=== PATIENT | female | born 1955 | race Caucasian/White ===

== ENCOUNTER 2017-06-28 19:10 | Emergency (ER) | payer SELFPAY ==
[~2017-06-28] VITALS: Ht 162.6 cm; Wt 77.1 kg
[~2017-06-28 19:10] MED LIST: ALBU2.5V4 IH; AMIT50TA3 PO; CETI10TA20 PO; DAPA5TAB PO; DICL100G18 TP; FLUT1DIS27 IH; HYDR-34 PO; HYDR-757 PO; LISI-556 PO; METF1000 PO; MONT10TA21 PO; NAPR-1071 PO; NAPR500T8 PO; OMEP20CA12 PO; PRAV20TA3 PO; PROM25TA14 PO; RT-ALBUINH IH; SMTR50T PO; SODI30SP2 NS; TIOT18CA2 IH; TRAM50TA2 PO
--- OUTSIDE RECORDS SUMMARY | 2017-06-28 19:16 | XMS REPORT ---
Author Author DOV JACOBS [facility] eClinicalWorks Address Unknown Phone Unavailable Care Team Providers Care Institutional Nutrition Consultant Name Role Phone DOV JACOBS CP Unavailable Allergies, Adverse Reactions, Alerts Substance Reaction Event Type Codeine nausea and vomiting Drug Allergy Problems Problem Type Condition Code Onset Dates Condition Status Assessment Acute flank pain R10.9 Active Problem Type II diabetes mellitus E11.9 Active Problem Asthma J45.909 Active Problem Encounter for dental examination and cleaning without abnormal findings Z01.20 Active Problem Onychomycosis B35.1 Active Assessment Dysuria R30.0 Active Problem Benign essential hypertension I10 Active Problem Hyperlipemia E78.5 Active Medications Medication Code System Code Instructions Start Date End Date Status Dosage Singulair [facility] [id number] 10 MG Orally Once a day 1 tablet ProAir HFA [facility] [address]-38 90 mcg/actuation Inhalation every 4 hrs August 01, 2014 2 puffs as needed Cyclobenzaprine HCl [facility] [address]-49 10 mg Orally Three times a day as needed for pain Jan 07, 2016 1/2 - 1 tablet cetirizine [facility] [address]-37 10 mg October 17, 2013 1 tablet by Oral route 1 daily Flector [facility] [address]-75 1.3 % Transdermal every 12 hours as needed Feb 18, 2016 1 patch to skin Farxiga [facility] [address]-01 5 MG Orally Once a day in the morni take 1 tablet Advair Diskus [facility] [address]-11 500-50 mcg/dose August 25, 2012 inhale 1 puff by Inhalation route in the morning and evening 2 times per day approximately 12 hours apart rinse mouth and spit after use MetFORMIN HCl ER (MOD) [facility] [address]-96 1000 MG Orally 2 times a day ( follow up in FEBRUARY) 1 tablet with breakfast and evening meal Lisinopril [facility] [address]-50 5 MG Orally Once a day 1 tablet by Oral route 1 time per day protect kidneys amitriptyline [facility] [address]-91 50 mg August 23, 2014 take 1 tablet (50 mg) by oral route once daily at bedtime Omeprazole [facility] [address]-78 20 MG Orally Once a day 1 capsule Albuterol Sulfate [facility] [address]-71 2.5 mg /3 mL (0.083 %) October 17, 2013 1 Each by Inhalation route every 4 hours for cough and wheeze PRN for wheezing or cough Pravastatin Sodium [facility] [address]-81 20 MG Orally Once a day Jun 26, 2015 1 tablet Naproxen [facility] [address]-73 500 MG Orally every 12 hrs Jun 05, 2015 1 tablet as needed Spiriva HandiHaler [facility] [address]-49 18 MCG Inhalation Once a day [address] capsule [address]mitrex [facility] [address]-75 50 mg Dec 31, 2013 take 1 tablet (50 mg ) by oral route once with fluids as early as possible after the onset of a migraine attack;may repeat after 2 hours if headache returns, not to exceed 200mg in 24hrs Procedures Procedure Coding System Code Date URINE CULTURE/COLONY COUNT CPT-4 80886 Feb 18, 2016 Office Visit, Est Pt., Level 3 CPT-4 24983 Feb 18, 2016 URINALYSIS, AUTO, W/O SCOPE CPT-4 05488 Feb 18, 2016 Vital Signs Date/Time: Feb 18, 2016 Cardiac Monitoring Heart Rate 76 bpm Weight 177.5 lbs Height 64 in BMI 30.46 Index Blood Pressure Diastolic 84 mmHg Blood Pressure Systolic 130 mmHg Results Name Result Date Reference Range Unit Abnormality Flag UA LONG DIP (IN HOUSE) ----MARCO Trace [id number] ----NIT Negative [id number] ----Exp date [id number] ----Lot # [id number] ----SG >=1.030 20160218 ----KET Trace [id number] ----FATUMA Negative [id number] ----GLU Trace [id number] ----Odor none [id number] ----pH 5.5 [id number] ----BLO Trace-lysed [id number] ----URO 0.2 [id number] ----Protein Negative [id number] ----Lot # [id number] ----Exp date [id number] ----Clarity clear [id number] ----Color yellow [id number] CULTURE, URINE ----Result 1 No growth [id number] ----Urine Culture, Routine Final report [id number] Summary Purpose eClinicalWorks Submission
--- OUTSIDE RECORDS SUMMARY | 2017-06-28 19:16 | XMS REPORT ---
Author Author JULIO MAHONEY [facility] Address [address] [place] [address] Care Team Providers Care Efficiency Miner Blasting Name Role Phone JULIO MAHONEY Unavailable PROBLEMS Type Condition ICD9-CM Code [id number] Code Onset Dates Condition Status SNOMED Code Problem Type II diabetes mellitus E11.9 Active 04467757 Problem Encounter for dental examination and cleaning without abnormal findings Z01.20 Active 370696520 Problem Asthma J45.909 Active 297076261 Problem Onychomycosis B35.1 Active 862851938 Problem Hyperlipemia E78.5 Active 57808156 Problem Benign essential hypertension I10 Active 1300119 Problem Chronic tension-type headache, not intractable G44.229 Active 746653688 Problem 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 280693623 Problem Depressed mood F32.9 Active 878070145 Problem Dysthymia F34.1 Active 77678209 Problem Nocturnal hypoxemia G47.34 Active 464331098 Problem COPD exacerbation J44.1 Active 736603794 ALLERGIES No Information SOCIAL HISTORY Never Assessed PLAN OF CARE VITAL SIGNS MEDICATIONS Unknown Medications RESULTS No Results PROCEDURES No Known procedures IMMUNIZATIONS No Known Immunizations MEDICAL (GENERAL) HISTORY Type Description Date Medical History Asthma- PFT 2012- "mild restrictive defect" Medical History Type 2 diabetes mellitus Medical History Headache syndrome Medical History Eye exam 03/2015- Dry eye syndrome, Exophria, nuclear sclerotic cataract- [facility] Medical History Left medial meniscus tear-seeing [facility] Surgical History hysterectomy, total with bilateral salpingo-oophorectomy (BSO )- had cysts on her ovaries- no hx of cancer Surgical History left arm fracture 2015 Surgical History left knee scope 10/2015 Surgical History left elbow 2016 Hospitalization History surgeries Hospitalization History Child
--- OUTSIDE RECORDS SUMMARY | 2017-06-28 19:16 | XMS REPORT ---
Author Author JULIO MAHONEY [facility] eClinicalWorks Address Unknown Phone Unavailable Care Team Providers Care Fur Repairer Name Role Phone JULIO MAHONEY CP Unavailable Allergies No Known Allergies Problems Problem Type Condition Code Onset Dates Condition Status Problem Unspecified sleep disturbance 780.50 Active Problem Headache 784.0 Active Problem Unspecified chronic bronchitis 491.9 Active Problem Unspecified follow-up examination V67.9 Active Problem Asthma 493.90 Active Problem Allergic rhinitis 477.9 Active Problem Type II diabetes mellitus 250.00 Active Problem Other diseases of lung, not elsewhere classified 518.89 Active Problem Obesity, unspecified 278.00 Active Problem Dermatophytosis of nail 110.1 Active Problem 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 Active Medications No Known Medications Results No Known Results Summary Purpose eClinicalWorks Submission
--- OUTSIDE RECORDS SUMMARY | 2017-06-28 19:17 | XMS REPORT ---
Author Author JAKI NEGRETE Organization [facility] Address [address] [place] [address] Care Team Providers Care Army Senior Officer Name Role Phone JAKI NEGRETE Unavailable PROBLEMS Type Condition ICD9-CM Code [id number] Code Onset Dates Condition Status SNOMED Code Problem Benign essential hypertension I10 Active 3979251 Problem Asthma J45.909 Active 239284135 Problem Type II diabetes mellitus E11.9 Active 73288728 Problem Onychomycosis B35.1 Active 717237622 Problem Hyperlipemia E78.5 Active 25864581 Problem Chronic tension-type headache, not intractable G44.229 Active 312508911 Problem 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 595409718 Problem Dysthymia F34.1 Active 56484047 Problem Encounter for dental examination and cleaning without abnormal findings Z01.20 Active 814966451 Problem Nocturnal hypoxemia G47.34 Active 498774893 Problem Depressed mood F32.9 Active 642828112 ALLERGIES No Information SOCIAL HISTORY Never Assessed PLAN OF CARE VITAL SIGNS MEDICATIONS Unknown Medications RESULTS No Results PROCEDURES No Known procedures IMMUNIZATIONS No Known Immunizations MEDICAL (GENERAL) HISTORY Type Description Date Medical History Asthma- PFT 2012- "mild restrictive defect" Medical History Type 2 diabetes mellitus Medical History Headache syndrome Medical History Eye exam 03/2015- Dry eye syndrome, [facility], [facility] Medical [facility] Left medial meniscus tear-seeing [facility] Surgical History hysterectomy, total with bilateral salpingo-oophorectomy (BSO )- had cysts on her ovaries- no hx of cancer Surgical History left arm fracture 2016 Surgical History left knee scope 10/2015 Surgical History left elbow 2016 Hospitalization History surgeries Hospitalization History Child
--- OUTSIDE RECORDS SUMMARY | 2017-06-28 19:17 | XMS REPORT ---
Author Author AIXA OVIEDO Organization [facility] Address [address] [place] [address] Care Team Providers Care Professor Of Communication Name Role Phone AIXA OVIEDO Unavailable PROBLEMS Type Condition ICD9-CM Code [id number] Code Onset Dates Condition Status SNOMED Code Problem Benign essential hypertension I10 Active 3582033 Problem Asthma J45.909 Active 536239554 Problem Type II diabetes mellitus E11.9 Active 71549272 Problem Onychomycosis B35.1 Active 978660678 Problem Hyperlipemia E78.5 Active 17346094 Problem Chronic tension-type headache, not intractable G44.229 Active 857556965 Problem 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 137755688 Problem Dysthymia F34.1 Active 44981397 Problem Encounter for dental examination and cleaning without abnormal findings Z01.20 Active 001872748 Problem Nocturnal hypoxemia G47.34 Active 900887866 Problem Depressed mood F32.9 Active 206488465 ALLERGIES Substance Reaction Event Type Date Status Codeine nausea and vomiting Drug Allergy Oct, Active SOCIAL HISTORY Never Assessed PLAN OF CARE Activity Details Follow Up prn Reason: VITAL SIGNS Height 64 in 2016-11-01 Weight 181.1 lbs 2016-11-01 Temperature 100.5 degrees Fahrenheit 2016-11-01 Heart Rate 94 bpm 2016-11-01 Respiratory Rate 18 2016-11-01 BMI 31.08 kg/m2 2016-11-01 Blood pressure systolic 120 mmHg 2016-11-01 Blood pressure diastolic 78 mmHg 2016-11-01 MEDICATIONS Medication Instructions Dosage Frequency Start Date End Date Duration Status Amaryl 2 MG Orally once daily at breakfast. 1 tablet Jun, Active cetirizine 10 mg 1 tablet by Oral route 1 daily September, Active Amitriptyline HCl 50 mg Orally at bedtime as needed 1 tablet Jul, 30 day(s) Active Lisinopril 5 mg Orally Once a day 1 tablet 24h Active Amoxicillin 500 mg Orally every 12 hrs 2 capsules 12h Oct,Oct 10 day(s) Active Omeprazole 20 MG Orally Once a day 1 capsule 24h Active Imitrex 50 mg take 1 tablet (50 mg) by oral route once with fluids as early as possible after the onset of a migraine attack;may repeat after 2 hours if headache returns, not to exceed 200mg in 24hrs Dec, Active Farxiga 10 mg Orally Once a day 1 tablet 24h Active Naproxen 500 mg Orally every 12 hrs 1 tablet 12h May, Active Singulair 10 MG Orally Once a day 1 tablet 24h Active ProAir HFA 90 mcg/actuation Inhalation every 4 hrs 2 puffs as needed 4h Jul, Active Zoloft 50 mg Orally Once a day 1 tablet 24h Feb, Active MetFORMIN HCl ER (MOD) 1000 MG Orally 2 times a day 1 tablet with breakfast and evening meal 12h Active Spiriva HandiHaler 18 MCG Inhalation Once a day 1 capsule 24h Active Advair Diskus 500-50 MCG/DOSE Inhalation 2 times a day 1 puff 12h Jul, Active Pravastatin Sodium 40 mg Orally Once a day 1 tablet Once a day Orally 24h 0 days Active Albuterol Sulfate 2.5 mg /3 mL (0.083 %) 1 Each by Inhalation route every 4 hours for cough and wheeze PRN for wheezing or cough September, Active RESULTS Name Result Date Reference Range STREP A (IN HOUSE) 2016-11-01 STREP A positive Control + Lot # [id number] Exp date 06/16 PROCEDURES Procedure Date Ordered Result Body Site STREP A ASSAY W/OPTIC November 01, 2016 IMMUNIZATIONS No Known Immunizations MEDICAL (GENERAL) HISTORY Type Description Date Medical History Asthma- PFT 2012- "mild restrictive defect" Medical History Type 2 diabetes mellitus Medical History Headache syndrome Medical History Eye exam 03/2015- Dry eye syndrome, Exophria, nuclear sclerotic cataract- [facility] Medical History Left medial meniscus tear-seeing [facility] Surgical History hysterectomy, total with bilateral salpingo-oophorectomy (BSO )- had cysts on her ovaries- no hx of cancer Surgical History left arm fracture 2015 Surgical History left knee scope 10/2015 Surgical History left elbow 2016 Hospitalization History surgeries Hospitalization History Child
--- OUTSIDE RECORDS SUMMARY | 2017-06-28 19:17 | XMS REPORT ---
Author JULIO Escobar [facility] eClinicalWorks Address Unknown Phone Unavailable Care Team Providers Care Contract Design Agent Name Role Phone JULIO MAHONEY CP Unavailable Allergies No Known Allergies Problems Problem Type Condition Code Onset Dates Condition Status Problem Type II diabetes mellitus E11.9 Active Problem Asthma J45.909 Active Problem Encounter for dental examination and cleaning without abnormal findings Z01.20 Active Problem Onychomycosis B35.1 Active Problem Benign essential hypertension I10 Active Problem Hyperlipemia E78.5 Active Medications No Known Medications Results No Known Results Summary Purpose eClinicalWorks Submission
--- OUTSIDE RECORDS SUMMARY | 2017-06-28 19:17 | XMS REPORT ---
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 014507807 Problem Nocturnal hypoxemia G47.34 Active 590658671 Problem Dysthymia F34.1 Active 45457443 Problem Encounter for dental examination and cleaning without abnormal findings Z01.20 Active 796144937 Problem COPD exacerbation J44.1 Active 710861409 Problem Depressed mood F32.9 Active 751442128 ALLERGIES Substance Reaction Event Type Date Status Codeine nausea and vomiting Drug Allergy May, Active SOCIAL HISTORY No smoking Hx information available PLAN OF CARE Activity Details Follow Up 3month perio maintenance Reason: VITAL SIGNS Blood pressure systolic 131 mmHg 2016-05-30 Blood pressure diastolic 82 mmHg 2016-05-30 MEDICATIONS Medication Instructions Dosage Frequency Start Date End Date Duration Status Omeprazole 20 MG Orally Once a day 1 capsule 24h Active Zoloft 50 mg Orally Once a day 1 tablet 24h Feb, Active Imitrex 50 mg take 1 tablet (50 mg) by oral route once with fluids as early as possible after the onset of a migraine attack;may repeat after 2 hours if headache returns, not to exceed 200mg in 24hrs Dec, Active amitriptyline 50 mg take 1 tablet (50 mg) by oral route once daily at bedtime Jul, Active Lisinopril 5 mg Orally Once a day 1 tablet 24h Active Pravastatin Sodium 20 MG 1 tablet Once a day Orally Active Singulair 10 MG Orally Once a day 1 tablet 24h Active Prilosec 20 MG 1 cap(s) po daily Active MetFORMIN HCl ER (MOD) 1000 MG Orally 2 times a day (follow up in May) 1 tablet with breakfast and evening meal Active Farxiga 5 MG Orally Once a day in the morni take 1 tablet Active cetirizine 10 mg 1 tablet by Oral route 1 daily September, Active Naproxen 500 MG Orally every 12 hrs 1 tablet as needed 12h May, Active Albuterol Sulfate 2.5 mg /3 mL (0.083 %) 1 Each by Inhalation route every 4 hours for cough and wheeze PRN for wheezing or cough September, Active Cyclobenzaprine HCl 10 mg Orally Three times a day as needed for pain 1/2 - 1 tablet Dec, Active ProAir HFA 90 mcg/actuation Inhalation every 4 hrs 2 puffs as needed 4h 06 Jul, 2014 Active Advair Diskus 500-50 mcg/dose inhale 1 puff by Inhalation route in the morning and evening 2 times per day approximately 12 hours apartrinse mouth and spit after use Jul, Active Spiriva HandiHaler 18 MCG Inhalation Once a day 1 capsule 24h Active RESULTS No Results PROCEDURES Procedure Date Ordered Related Diagnosis Body Site PERIODIC ORAL EXAMINATION May 30, 2016 Periodontal maint procedures May 30, 2016 TOPICAL FLUORIDE VARNISH May 30, 2016 IMMUNIZATIONS No Known Immunizations
--- OUTSIDE RECORDS SUMMARY | 2017-06-28 19:17 | XMS REPORT ---
Author Author JULIO MAHONEY Organization [facility] Address [address] [place] [address] Care Team Providers Care Director Of Undergraduate Admissions Name Role Phone JULIO MAHONEY Unavailable PROBLEMS Type Condition ICD9-CM Code [id number] Code Onset Dates Condition Status SNOMED Code Problem Type II diabetes mellitus E11.9 Active 18146557 Problem Encounter for dental examination and cleaning without abnormal findings Z01.20 Active 415903873 Problem Asthma J45.909 Active 929703810 Problem Onychomycosis B35.1 Active 822865326 Problem Hyperlipemia E78.5 Active 84908064 Problem Benign essential hypertension I10 Active 8093613 Problem Chronic tension-type headache, not intractable G44.229 Active 830809388 Problem 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
--- OUTSIDE RECORDS SUMMARY | 2017-06-28 19:17 | XMS REPORT ---
Author Author CEZAR CLARK Organization eClinicalWorks Address Unknown Phone Unavailable Care Team Providers Care Paper Testing Supervisor Name Role Phone CEZAR CLARK Unavailable Allergies No Known Allergies Problems Problem Type Condition Code Onset Dates Condition Status Problem Asthma J45.909 Active Assessment Dental examination Z01.20 Active Problem Type II diabetes mellitus E11.9 Active Medications No Known Medications Procedures Procedure Coding System Code Date AMALGAM-TWO SURFACES PRIMARY/PERM CPT-4 D2150 May 20, 2015 Vital Signs Date/Time: Jun 10, 2015 Blood Pressure Diastolic 87 mmHg Blood Pressure Systolic 126 mmHg Results No Known Results Summary Purpose eClinicalWorks Submission
--- OUTSIDE RECORDS SUMMARY | 2017-06-28 19:17 | XMS REPORT ---
Author Author ROSEMARY PIERRE Organization [facility] Address Unknown Phone Unavailable Care Team Providers Care English Adjunct Faculty Name Role Phone ROSEMARY PIERRE Unavailable Unavailable PROBLEMS Type Condition ICD9-CM Code [id number] Code Onset Dates Condition Status SNOMED Code Problem Benign essential hypertension I10 Active 9434399 Problem Asthma J45.909 Active 490214390 Problem Type II diabetes mellitus E11.9 Active 23674768 Problem Onychomycosis B35.1 Active 213455306 Problem Hyperlipemia E78.5 Active 70436994 Problem Chronic tension-type headache, not intractable G44.229 Active 429289121 Problem 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
--- OUTSIDE RECORDS SUMMARY | 2017-06-28 19:17 | XMS REPORT ---
Author JULIO Escobar [facility] eClinicalWorks Address Unknown Phone Unavailable Care Team Providers Care Cook Italian Style Food Name Role Phone JULIO MAHONEY CP Unavailable Allergies No Known Allergies Problems Problem Type Condition Code Onset Dates Condition Status Problem Hyperlipemia E78.5 Active Problem Onychomycosis B35.1 Active Problem Depressed mood F32.9 Active Problem Dysthymia F34.1 Active Problem COPD exacerbation J44.1 Active Problem Asthma J45.909 Active Problem Benign essential hypertension I10 Active Problem Encounter for dental examination and cleaning without abnormal findings Z01.20 Active Problem Type II diabetes mellitus E11.9 Active Medications Medication Code System Code Instructions Start Date End Date Status Dosage ProAir HFA [facility] [address]-29 90 mcg/actuation Inhalation every 4 hrs August 01, 2014 2 puffs as needed Results No Known Results Summary Purpose eClinicalWorks Submission
--- OUTSIDE RECORDS SUMMARY | 2017-06-28 19:17 | XMS REPORT ---
Author JULIO Escobar [facility] eClinicalWorks Address Unknown Phone Unavailable Care Team Providers Care Acid Recovery Operator Name Role Phone JULIO MAHONEY CP Unavailable Allergies, Adverse Reactions, Alerts Substance Reaction Event Type Codeine nausea and vomiting Drug Allergy Problems Problem Type Condition Code Onset Dates Condition Status Assessment Benign essential hypertension I10 Active Problem Asthma J45.909 Active Problem Benign essential hypertension I10 Active Problem Type II diabetes mellitus E11.9 Active Assessment Type II diabetes mellitus E11.9 Active Assessment Hyperlipemia E78.5 Active Problem Hyperlipemia E78.5 Active Problem Onychomycosis B35.1 Active Medications Medication Code System Code Instructions Start Date End Date Status Dosage Voltaren [facility] [address]-66 1 % Transdermal 3 times a day Jun 05, 2015 as directed ProAir HFA [facility] [address]-59 90 mcg/actuation Inhalation every 4 hrs August 01, 2014 2 puffs as needed Lisinopril [facility] [address]-81 5 MG Orally Once a day 1 tablet by Oral route 1 time per day protect kidneys Pravastatin Sodium [facility] [address]-95 20 MG Orally Once a day Jun 26, 2015 1 tablet Ibuprofen [facility] [address]-11 800 MG Orally Three times a day September 07, 2015 October 07, 2015 1 tablet MetFORMIN HCl ER (MOD) [facility] [address]-25 1000 MG Orally 2 times a day ( follow up in FEBRUARY) 1 tablet with breakfast and evening meal Singulair [facility] 58896176601 10 MG Orally Once a day 1 tablet amitriptyline [facility] [address]-11 50 mg August 23, 2014 take 1 tablet (50 mg) by oral route once daily at bedtime Farxiga [facility] [address]-58 5 MG Orally Once a day in the [facility] take 1 tablet cetirizine [facility] [address]-91 10 mg October 17, 2013 1 tablet by Oral route 1 daily Advair Diskus [facility] [address]-23 500-50 mcg/dose August 25, 2012 inhale 1 puff by Inhalation route in the morning and evening 2 times per day approximately 12 hours apart rinse mouth and spit after use Saline Nasal [place] [facility] [address]-02 0.65 % Nasally every 2 hrs Jul 22, 2015 2 sprays in each nostril as needed Albuterol Sulfate [facility] [address]-08 2.5 mg /3 mL (0.083 %) October 17, 2013 1 Each by Inhalation route every 4 hours for cough and wheeze PRN for wheezing or cough Omeprazole [facility] [address]-19 20 MG Orally Once a day 1 capsule Naproxen [facility] [address]-50 500 MG Orally every 12 hrs Jun 05, 2015 1 tablet as needed Spiriva HandiHaler [facility] [address]-98 18 MCG Inhalation Once a day 1 capsule Imitrex [facility] [address]-16 50 mg Dec 31, 2013 take 1 tablet (50 mg ) by oral route once with fluids as early as possible after the onset of a migraine attack;may repeat after 2 hours if headache returns, not to exceed 200mg in 24hrs Procedures Procedure Coding System Code Date ASSAY OF URINE CREATININE CPT-4 92713 September 25, 2015 MICROALBUMIN, QUANTITATIVE CPT-4 30139 September 25, 2015 GLYCATED HEMOGLOBIN TEST CPT-4 75083 September 25, 2015 Office Visit, Est Pt., Level 3 CPT-4 16525 September 25, 2015 Vital Signs Date/Time: September 25, 2015 Temperature 97.8 F Weight 167.7 lbs Height 64 in BMI 28.78 Index Blood Pressure Diastolic 80 mmHg Blood Pressure Systolic 126 mmHg Cardiac Monitoring Heart Rate 66 bpm Results Name Result Date Reference Range Unit Abnormality Flag A1C (IN HOUSE) ----A1C IN HOUSE 6.9 [id number] 4.3 - 5.6 % ----Previous A1c 6.7 [id number] ----Lot [id number] ----Exp date [id number] Summary Purpose eClinicalWorks Submission
--- OUTSIDE RECORDS SUMMARY | 2017-06-28 19:17 | XMS REPORT ---
Author JULIO Escobar [facility] eClinicalWorks Address Unknown Phone Unavailable Care Team Providers Care Station Attendant Name Role Phone JULIO MAHONEY CP Unavailable Allergies No Known Allergies Problems Problem Type Condition Code Onset Dates Condition Status Problem Asthma J45.909 Active Problem Benign essential hypertension I10 Active Problem Type II diabetes mellitus E11.9 Active Problem Hyperlipemia E78.5 Active Problem Onychomycosis B35.1 Active Medications No Known Medications Results No Known Results Summary Purpose eClinicalWorks Submission
--- OUTSIDE RECORDS SUMMARY | 2017-06-28 19:17 | XMS REPORT ---
Author JULIO Escobar [facility] eClinicalWorks Address Unknown Phone Unavailable Care Team Providers Care Theatre Instructor Name Role Phone JULIO MAHONEY CP Unavailable Allergies, Adverse Reactions, Alerts Substance Reaction Event Type Codeine nausea and vomiting Drug Allergy Problems Problem Type Condition Code Onset Dates Condition Status Assessment Hyperlipemia E78.5 Active Assessment Type II diabetes mellitus E11.9 Active Assessment Dysthymia F34.1 Active Problem Encounter for dental examination and cleaning without abnormal findings Z01.20 Active Problem Type II diabetes mellitus E11.9 Active Problem Dysthymia F34.1 Active Problem Hyperlipemia E78.5 Active Problem Onychomycosis B35.1 Active Problem Asthma J45.909 Active Problem Benign essential hypertension I10 Active Medications Medication Code System Code Instructions Start Date End Date Status Dosage MetFORMIN HCl ER (MOD) [facility] [address]-67 1000 MG Orally 2 times a day ( follow up in May) 1 tablet with breakfast and evening meal Lisinopril [facility] [address]-39 5 mg Orally Once a day 1 tablet Albuterol Sulfate [facility] [address]-99 2.5 mg /3 mL (0.083 %) October 17, 2013 1 Each by Inhalation route every 4 hours for cough and wheeze PRN for wheezing or cough amitriptyline [facility] [address]-90 50 mg August 23, 2014 take 1 tablet (50 mg) by oral route once daily at bedtime Naproxen [facility] [address]-93 500 MG Orally every 12 hrs Jun 05, 2015 1 tablet as needed Pravastatin Sodium [facility] [address]-52 20 MG Orally Once a day Jun 26, 2015 1 tablet Advair Diskus [facility] [address]-52 500-50 mcg/dose August 25, 2012 inhale 1 puff by Inhalation route in the morning and evening 2 times per day approximately 12 hours apart rinse mouth and spit after use Singulair [facility] 21899214881 10 MG Orally Once a day 1 tablet cetirizine [facility] [address]-81 10 mg October 17, 2013 1 tablet by Oral route 1 daily Prilosec [facility] 43360867751 20 MG 1 cap(s) po daily Spiriva HandiHaler [facility] [address]-38 18 MCG Inhalation Once a day 1 capsule Farxiga [facility] [address]-21 5 MG Orally Once a day in the morni take 1 tablet Imitrex [facility] [address]-22 50 mg Dec 31, 2013 take 1 tablet (50 mg ) by oral route once with fluids as early as possible after the onset of a migraine attack;may repeat after 2 hours if headache returns, not to exceed 200mg in 24hrs ProAir HFA [facility] [address]-08 90 mcg/actuation Inhalation every 4 hrs August 01, 2014 2 puffs as needed Cyclobenzaprine HCl [facility] [address]-28 10 mg Orally Three times a day as needed for pain Jan 07, 2016 1/2 - 1 tablet Omeprazole [facility] [address]-84 20 MG Orally Once a day 1 capsule Zoloft [facility] [address]-88 50 mg Orally Once a day Mar 28, 2016 1 tablet Procedures Procedure Coding System Code Date Office Visit, Est Pt., Level 3 CPT-4 25579 Mar 28, 2016 GLYCATED HEMOGLOBIN TEST CPT-4 08644 Mar 28, 2016 Vital Signs Date/Time: Mar 28, 2016 Cardiac Monitoring Heart Rate 75 bpm Weight 177.7 lbs Height 64 in BMI 30.50 Index Blood Pressure Diastolic 78 mmHg Blood Pressure Systolic 132 mmHg Results Name Result Date Reference Range Unit Abnormality Flag A1C (IN HOUSE) ----A1C IN HOUSE 6.8 [id number] 4.3 - 5.6 % ----Previous A1c 6.9 [id number] ----Lot [id number] ----Exp date [id number] Summary Purpose eClinicalWorks Submission
--- OUTSIDE RECORDS SUMMARY | 2017-06-28 19:18 | XMS REPORT ---
Author Author LIZ NIÑO Organization eClinicalWorks Address Unknown Phone Unavailable Care Team Providers Care Client Solutions Manager Name Role Phone LIZ NIÑO CP Unavailable Allergies, Adverse Reactions, Alerts Substance Reaction Event Type Codeine nausea and vomiting Drug Allergy Problems Problem Type Condition Code Onset Dates Condition Status Problem Type II diabetes mellitus E11.9 Active Problem Asthma J45.909 Active Problem Encounter for dental examination and cleaning without abnormal findings Z01.20 Active Problem Onychomycosis B35.1 Active Assessment Encounter for dental examination and cleaning without abnormal findings Z01.20 Active Problem Benign essential hypertension I10 Active Problem Hyperlipemia E78.5 Active Medications No Known Medications Procedures Procedure Coding System Code Date Periodontal maint procedures CPT-4 D4910 Dec 29, 2015 BITEWINGS - FOUR FILMS CPT-4 D0274 Dec 29, 2015 Vital Signs Date/Time: Dec 29, 2015 Blood Pressure Diastolic 77 mmHg Blood Pressure Systolic 126 mmHg Cardiac Monitoring Heart Rate 71 bpm Results No Known Results Summary Purpose eClinicalWorks Submission
--- OUTSIDE RECORDS SUMMARY | 2017-06-28 19:18 | XMS REPORT ---
Author Author JULIO MAHONEY [facility] eClinicalWorks Address Unknown Phone Unavailable Care Team Providers Care Smelter Operator Name Role Phone JULIO MAHONEY CP Unavailable Allergies No Known Allergies Problems Problem Type Condition ICD-9 Code Onset Dates Condition Status Problem Unspecified follow-up examination V67.9 Active Problem Unspecified bacterial pneumonia 482.9 Active Problem Obesity, unspecified 278.00 Active Problem Unspecified sleep disturbance 780.50 Active Problem Diabetes mellitus without mention of complication, type II or unspecified type, not stated as uncontrolled 250.00 Active Problem Cough 786.2 Active Problem Other diseases of lung, not elsewhere classified 518.89 Active Problem Diarrhea 787.91 Active Problem 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 Active Problem Allergic rhinitis 477.9 Active Problem Uncontrolled persistent asthma 493.90 Active Problem Chest pain, other 786.59 Active Problem Medial epicondylitis of elbow 726.31 Active Problem Diabetes 250.00 Active Problem Obstructive chronic bronchitis, with (acute) exacerbation 491.21 Active Problem Dermatophytosis of nail 110.1 Active Problem Gynecological examination V72.3 Active Problem Pain in joint, upper arm 719.42 Active Problem Acute sinusitis, unspecified 461.9 Active Problem Asthma, unspecified, with (acute) exacerbation 493.92 Active Problem Unspecified chronic bronchitis 491.9 Active Problem Unspecified breast screening V76.10 Active Problem Routine gynecological examination V72.31 Active Problem Allergic rhinitis due to pollen 477.0 Active Problem Headache 784.0 Active Problem Mycoplasma infection in conditions classified elsewhere and of unspecified site 041.81 Active Problem Acute bronchitis 466.0 Active Medications No Known Medications Results No Known Results Summary Purpose eClinicalWorks Submission
--- OUTSIDE RECORDS SUMMARY | 2017-06-28 19:18 | XMS REPORT ---
Author Author LIZ NIÑO Organization eClinicalWorks Address Unknown Phone Unavailable Care Team Providers Care Golf Starter And Ranger Name Role Phone LIZ NIÑO CP Unavailable Allergies No Known Allergies Problems Problem Type Condition Code Onset Dates Condition Status Problem Unspecified sleep disturbance 780.50 Active Problem Headache 784.0 Active Problem Unspecified chronic bronchitis 491.9 Active Assessment Dental examination Z01.20 Active Problem Unspecified follow-up examination V67.9 Active Problem Asthma 493.90 Active Problem Allergic rhinitis 477.9 Active Problem Type II diabetes mellitus 250.00 Active Problem Other diseases of lung, not elsewhere classified 518.89 Active Problem Obesity, unspecified 278.00 Active Problem Dermatophytosis of nail 110.1 Active Problem 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 Active Medications No Known Medications Procedures Procedure Coding System Code Date INTRAORL - CMPL SERIES CODE 82101 CPT-4 D0210 May 20, 2015 Full mouth debridement CPT-4 D4355 May 20, 2015 PERIODIC ORAL EXAMINATION CPT-4 D0120 May 20, 2015 Results No Known Results Summary Purpose eClinicalWorks Submission
--- OUTSIDE RECORDS SUMMARY | 2017-06-28 19:18 | XMS REPORT ---
Author [facility] Address [address] [place] [address] Care Team Providers Care Journeyman Machinist Name Role Phone JULIO MAHONEY Unavailable PROBLEMS Type Condition ICD9-CM Code [id number] Code Onset Dates Condition Status SNOMED Code Problem Type II diabetes mellitus E11.9 Active 99675429 Problem Encounter for dental examination and cleaning without abnormal findings Z01.20 Active 138740323 Problem Asthma J45.909 Active 210998785 Problem Onychomycosis B35.1 Active 428972777 Problem Hyperlipemia E78.5 Active 37031357 Problem Benign essential hypertension I10 Active 4517436 Problem Chronic tension-type headache, not intractable G44.229 Active 993383685 Problem 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 335831534 Problem Depressed mood F32.9 Active 372591919 Problem Dysthymia F34.1 Active 23719736 Problem Nocturnal hypoxemia G47.34 Active 924865054 Problem COPD exacerbation J44.1 Active 216196488 ALLERGIES Substance Reaction Event Type Date Status Codeine nausea and vomiting Drug Allergy Jul, Active SOCIAL HISTORY Never Assessed PLAN OF CARE Activity Details Follow Up prn Reason: VITAL SIGNS Height 64 in 2016-08-02 Weight 179.0 lbs 2016-08-02 Temperature 98.0 degrees Fahrenheit 2016-08-02 Heart Rate 80 bpm 2016-08-02 Respiratory Rate 18 2016-08-02 BMI 30.72 kg/m2 2016-08-02 Blood pressure systolic 124 mmHg 2016-08-02 Blood pressure diastolic 82 mmHg 2016-08-02 MEDICATIONS Medication Instructions Dosage Frequency Start Date End Date Duration Status amitriptyline 50 mg take 1 tablet (50 mg) by oral route once daily at bedtime Jul, Active Zoloft 50 mg Orally Once a day 1 tablet 24h Feb, Active Lisinopril 5 mg Orally Once a day 1 tablet 24h Active MetFORMIN HCl ER (MOD) 1000 MG Orally 2 times a day (follow up in SEPTEMBER) 1 tablet with breakfast and evening meal Active Advair Diskus 500-50 MCG/DOSE Inhalation 2 times a day 1 puff 12h Jul, Active Spiriva HandiHaler 18 MCG Inhalation Once a day 1 capsule 24h Active Naproxen 500 mg Orally every 12 hrs 1 tablet 12h May, Active Farxiga 10 mg Orally Once a day 1 tablet 24h Active Amaryl 1 MG Orally once daily at breakfast. 1 tablet Jun, Active Albuterol Sulfate 2.5 mg /3 mL (0.083 %) 1 Each by Inhalation route every 4 hours for cough and wheeze PRN for wheezing or cough September, Active Singulair 10 MG Orally Once a day 1 tablet 24h Active ProAir HFA 90 mcg/actuation Inhalation every 4 hrs 2 puffs as needed 4h Jul, Active Omeprazole 20 MG Orally Once a day 1 capsule 24h Active Imitrex 50 mg take 1 tablet (50 mg) by oral route once with fluids as early as possible after the onset of a migraine attack;may repeat after 2 hours if headache returns, not to exceed 200mg in 24hrs Dec, Active PredniSONE 20 mg Orally Once a day 2 tablet 24h Jul, Jul, 05 days Active cetirizine 10 mg 1 tablet by Oral route 1 daily September, Active Pravastatin Sodium 40 mg Orally Once a day 1 tablet Once a day Orally 24h 0 days Active RESULTS No Results PROCEDURES Procedure Date Ordered Result Body Site PPV23 (PNEUMOVAX) August 02, 2016 SINGLE IMMUNIZATION ADMIN August 02, 2016 IMMUNIZATIONS Vaccine Route Administration Date Status PPV23 (PNEUMOVAX) IM Intramuscular August 02, 2016 Administered MEDICAL (GENERAL) HISTORY Type Description Date Medical [...]
--- OUTSIDE RECORDS SUMMARY | 2017-06-28 19:18 | XMS REPORT ---
Author JULIO Escobar [facility] eClinicalWorks Address Unknown Phone Unavailable Care Team Providers Care Creative Developer Name Role Phone JULIO MAHONEY Unavailable Allergies, Adverse Reactions, Alerts Substance Reaction Event Type Codeine nausea and vomiting Drug Allergy Problems Problem Type Condition Code Onset Dates Condition Status Problem Asthma J45.909 Active Assessment Left knee pain M25.562 Active Problem Type II diabetes mellitus E11.9 Active Medications Medication Code System Code Instructions Start Date End Date Status Dosage Cyclobenzaprine HCl [facility] [address]-99 5 MG Orally 2 times a day Jun 05, 2015 Jul 05, 2015 1 tablet Spiriva HandiHaler [facility] [address]-90 18 MCG Inhalation Once a day 1 capsule cetirizine [facility] [address]-55 10 mg October 17, 2013 1 tablet by Oral route 1 daily Farxiga [facility] [address]-00 5 MG Orally Once a day in the morni Jul 21, 2014 take 1 tablet Albuterol Sulfate [facility] [address]-11 2.5 mg /3 mL (0.083 %) October 17, 2013 1 Each by Inhalation route every 4 hours for cough and wheeze PRN for wheezing or cough ProAir HFA [facility] [address]-18 90 mcg/actuation Inhalation every 4 hrs August 01, 2014 2 puffs as needed amitriptyline [facility] [address]-01 50 mg August 23, 2014 take 1 tablet (50 mg) by oral route once daily at bedtime Imitrex [facility] [address]-60 50 mg Dec 31, 2013 take 1 tablet (50 mg ) by oral route once with fluids as early as possible after the onset of a migraine attack;may repeat after 2 hours if headache returns, not to exceed 200mg in 24hrs Advair Diskus [facility] [address]-12 500-50 mcg/dose August 25, 2012 inhale 1 puff by Inhalation route in the morning and evening 2 times per day approximately 12 hours apart rinse mouth and spit after use Naproxen [facility] [address]-75 500 MG Orally every 12 hrs Jun 05, 2015 1 tablet as needed Lisinopril [facility] 27120363487 5 MG 1 tablet by Oral route 1 time per day protect kidneys pravastatin ND 0 10 mg Jul 25, 2014 1 tablet by Oral route 1 time per day QHS. Avoid grapefruit juice and products with grapefruit. Omeprazole [facility] [address]-07 20 MG Orally Once a day 1 capsule Voltaren [facility] [address]-23 1 % Transdermal 3 times a day Jun 05, 2015 as directed MetFORMIN HCl ER (MOD) [facility] [address]-85 1000 MG Orally 2 times a day ( follow up in APR 1 tablet with evening meal Singulair [facility] [address]-35 10 MG Orally Once a day 1 tablet Procedures Procedure Coding System Code Date THER/PROPH/DIAG INJ, SC/IM CPT-4 65716 Jun 05, 2015 Office Visit, Est Pt., Level 3 CPT-4 62285 Jun 05, 2015 TORADOL (IM) 15 MG/ML (UP TO 15 MG) CPT-4 J1885 Jun 05, 2015 Vital Signs Date/Time: Jun 05, 2015 Temperature 98.0 F Weight 178.8 lbs Height 64 in BMI 30.69 Index Blood Pressure Diastolic 86 mmHg Blood Pressure Systolic 122 mmHg Cardiac Monitoring Heart Rate 78 bpm Results No Known Results Summary Purpose eClinicalWorks Submission
--- OUTSIDE RECORDS SUMMARY | 2017-06-28 19:18 | XMS REPORT ---
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
--- OUTSIDE RECORDS SUMMARY | 2017-06-28 19:18 | XMS REPORT ---
Author JULIO Escobar [facility] eClinicalWorks Address Unknown Phone Unavailable Care Team Providers Care Yard Cleaner Name Role Phone JULIO MAHONEY CP Unavailable Allergies, Adverse Reactions, Alerts Substance Reaction Event Type Codeine nausea and vomiting Drug Allergy Problems Problem Type Condition ICD-9 Code Onset Dates Condition Status Problem Unspecified sleep disturbance 780.50 Active Problem Headache 784.0 Active Problem Unspecified chronic bronchitis 491.9 Active Problem Asthma 493.90 Active Problem Allergic rhinitis 477.9 Active Problem Type II diabetes mellitus 250.00 Active Problem Other diseases of lung, not elsewhere classified 518.89 Active Problem Obesity, unspecified 278.00 Active Problem Dermatophytosis of nail 110.1 Active Problem 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 Active Assessment Asthma 493.90 Active Assessment Type II diabetes mellitus 250.00 Active Problem Unspecified follow-up examination V67.9 Active Medications Medication Code System Code Instructions Start Date End Date Status Dosage cetirizine [facility] [address]-90 10 mg October 17, 2013 1 tablet by Oral route 1 daily Singulair [facility] [address]-91 10 MG Orally Once a day 1 tablet ProAir HFA [facility] [address]-94 90 mcg/actuation August 01, 2014 inhale 2 puffs by Inhalation route every 4 hours as needed 7 days then prn Farxiga [facility] [address]-85 5 MG Orally Once a day in the morni Jul 21, 2014 take 1 tablet Lisinopril [facility] 24355199147 5 MG 1 tablet by Oral route 1 time per day protect kidneys Omeprazole [facility] [address]-62 20 MG Orally Once a day 1 capsule Albuterol Sulfate [facility] [address]-55 2.5 mg /3 mL (0.083 %) October 17, 2013 1 Each by Inhalation route every 4 hours for cough and wheeze PRN for wheezing or cough Advair Diskus [facility] [address]-72 500-50 mcg/dose August 25, 2012 inhale 1 puff by Inhalation route in the morning and evening 2 times per day approximately 12 hours apart rinse mouth and spit after use MetFORMIN HCl ER (MOD) [facility] [address]-61 1000 MG Orally 2 times a day ( follow up in APR 1 tablet with evening meal Lisinopril [facility] [address]-59 5 mg Jul 21, 2014 1 tablet by Oral route 1 time per day protect kidneys amitriptyline [facility] [address]-63 50 mg August 23, 2014 take 1 tablet (50 mg) by oral route once daily at bedtime Spiriva HandiHaler [facility] [address]-29 18 MCG Inhalation Once a day 1 capsule pravastatin [facility] 0 10 mg Jul 25, 2014 1 tablet by Oral route 1 time per day QHS. Avoid grapefruit juice and products with grapefruit. Imitrex [facility] [address]-33 50 mg Dec 31, 2013 take 1 tablet (50 mg ) by oral route once with fluids as early as possible after the onset of a migraine attack;may repeat after 2 hours if headache returns, not to exceed 200mg in 24hrs Procedures Procedure Coding System Code Date COMPREHEN METABOLIC PANEL CPT-4 64081 Feb 20, 2015 VENIPUNCT, ROUTINE* CPT-4 91788 Feb 20, 2015 GLYCATED HEMOGLOBIN TEST CPT-4 27163 Feb 20, 2015 Office Visit, Est Pt., Level 3 CPT-4 36814 Feb 20, 2015 Vital Signs Date/Time: Feb 20, 2015 Temperature 97.8 F Weight 177.3 lbs Height 64 in BMI 30.43 Index Blood Pressure Diastolic 72 mmHg Blood Pressure Systolic 118 mmHg Cardiac Monitoring Heart Rate 73 bpm Results No Known Results Summary Purpose eClinicalWorks Submission
--- OUTSIDE RECORDS SUMMARY | 2017-06-28 19:18 | XMS REPORT ---
Author Author JULIO MAHONEY [facility] eClinicalWorks Address Unknown Phone Unavailable Care Team Providers Care Opera Singer Name Role Phone JULIO MAHONEY CP Unavailable [...]
--- OUTSIDE RECORDS SUMMARY | 2017-06-28 19:18 | XMS REPORT ---
Author Author VIET LINDSAY [facility] eClinicalWorks Address Unknown Phone Unavailable Care Team Providers Care Marketing Sales Consultant Name Role Phone VIET LINDSAY CP Unavailable Allergies, Adverse Reactions, Alerts Substance Reaction Event Type Codeine nausea and vomiting Drug Allergy Problems Problem Type Condition Code Onset Dates Condition Status Assessment COPD exacerbation J44.1 Active Problem Hyperlipemia E78.5 Active Problem Onychomycosis [...] Instructions Start Date End Date Status Dosage Advair Diskus [facility] [address]-12 500-50 mcg/dose August 25, 2012 inhale 1 puff by Inhalation route in the morning and evening 2 times per day approximately 12 hours apart rinse mouth and spit after use Imitrex [facility] [address]-15 50 mg Dec 31, 2013 take 1 tablet (50 mg ) by oral route once with fluids as early as possible after the onset of a migraine attack;may repeat after 2 hours if headache returns, not to exceed 200mg in 24hrs Omeprazole [facility] [address]-00 20 MG Orally Once a day 1 capsule Prilosec [facility] 05334080035 20 MG 1 cap(s) po daily Pravastatin Sodium [facility] [address]-44 20 MG Orally Once a day Jun 26, 2015 1 tablet Singulair [facility] 86703251334 10 MG Orally Once a day 1 tablet Albuterol Sulfate [facility] [address]-13 2.5 mg /3 mL (0.083 %) October 17, 2013 1 Each by Inhalation route every 4 hours for cough and wheeze PRN for wheezing or cough Naproxen [facility] [address]-04 500 MG Orally every 12 hrs Jun 05, 2015 1 tablet as needed Cyclobenzaprine HCl [facility] [address]-75 10 mg Orally Three times a day as needed for pain Jan 07, 2016 1/2 - 1 tablet Lisinopril [facility] [address]-41 5 mg Orally Once a day 1 tablet ProAir HFA [facility] [address]-45 90 mcg/actuation Inhalation every 4 hrs August 01, 2014 2 puffs as needed Spiriva HandiHaler [facility] [address]-06 18 MCG Inhalation Once a day 1 capsule Zoloft [facility] [address]-65 50 mg Orally Once a day Mar 28, 2016 1 tablet amitriptyline [facility] [address]-57 50 mg August 23, 2014 take 1 tablet (50 mg) by oral route once daily at bedtime Doxycycline Hyclate [facility] [address]-60 100 MG Orally Twice a day Apr 12, 2016 Apr 17, 2016 1 capsule MetFORMIN HCl ER (MOD) [facility] [address]-66 1000 MG Orally 2 times a day ( follow up in May) 1 tablet with breakfast and evening meal cetirizine [facility] [address]-45 10 mg October 17, 2013 1 tablet by Oral route 1 daily Farxiga [facility] [address]-62 5 MG Orally Once a day in the morni take 1 tablet PredniSONE [facility] [address]-17 50 mg Orally Once a day Apr 12, 2016 Apr 17, 2016 1 tablet Procedures Procedure Coding System Code Date Office Visit, Est Pt., Level 2 CPT-4 22981 Apr 12, 2016 Vital Signs Date/Time: Apr 12, 2016 Cardiac Monitoring Heart Rate 72 bpm Weight 177.7 lbs Height 64 in BMI 30.50 Index Blood Pressure Diastolic 72 mmHg Blood Pressure Systolic 124 mmHg Results No Known Results Summary Purpose eClinicalWorks Submission
--- OUTSIDE RECORDS SUMMARY | 2017-06-28 19:19 | XMS REPORT ---
Author Author JULIO MAHONEY Organization [facility] Address [address] [place] [address] Care Team Providers Care Finished Carpet Inspector Name Role Phone JULIO MAHONEY Unavailable PROBLEMS Type Condition ICD9-CM Code [id number] Code Onset Dates Condition Status SNOMED Code Problem Type II diabetes mellitus E11.9 Active 99265733 Problem Encounter for dental examination and cleaning without abnormal findings Z01.20 Active 014976386 Problem Asthma J45.909 Active 787430417 Problem Onychomycosis B35.1 Active 638330557 Problem Hyperlipemia E78.5 Active 48871368 Problem Benign essential hypertension I10 Active 2149722 Problem Chronic tension-type headache, not intractable G44.229 Active 209676615 Problem 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
--- OUTSIDE RECORDS SUMMARY | 2017-06-28 19:19 | XMS REPORT ---
Author Author DILIP DOMINIQUE [facility] eClinicalWorks Address Unknown Phone Unavailable Care Team Providers Care Captain/Airline Pilot Name Role Phone DILIP DOMINIQUE Unavailable Allergies No Known Allergies Problems Problem Type Condition ICD-9 Code Onset Dates Condition Status Assessment Medial epicondylitis of left elbow 726.31 Active Problem Unspecified follow-up examination V67.9 Active [...] bronchitis 466.0 Active Medications No Known Medications Procedures Procedure Coding System Code Date DEPO MEDROL 40 MG/ML CPT-4 J1030 Feb 12, 2015 Office Visit, Est Pt., Level 2 CPT-4 36035 Feb 12, 2015 INJ TENDON SHEATH/LIGAMENT CPT-4 98402 Feb 12, 2015 Vital Signs Date/Time: Feb 12, 2015 Blood Pressure Diastolic 72 mmHg Blood Pressure Systolic 112 mmHg Height 64 in Results Name Result Date Reference Range Unit Abnormality Flag INJ TENDON SHEATH/LIGAMENT Summary Purpose eClinicalWorks Submission
--- OUTSIDE RECORDS SUMMARY | 2017-06-28 19:19 | XMS REPORT ---
Author Author JULIO MAHONEY [facility] eClinicalWorks Address Unknown Phone Unavailable Care Team Providers Care Child Care Education Coordinator Name Role Phone JULIO MAHONEY CP Unavailable [...] Problem 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 Active Medications Medication Code System Code Instructions Start Date End Date Status Dosage Spiriva HandiHaler [facility] [address]-80 18 MCG Inhalation Once a day 1 capsule ProAir HFA [facility] [address]-31 90 mcg/actuation Inhalation every 4 hrs August 01, 2014 2 puffs as needed Results No Known Results Summary Purpose eClinicalWorks Submission
--- OUTSIDE RECORDS SUMMARY | 2017-06-28 19:19 | XMS REPORT ---
Author JULIO Escobar [facility] eClinicalWorks Address Unknown Phone Unavailable Care Team Providers Care Reservation Manager Name Role Phone JULIO MAHONEY Unavailable Allergies No Known Allergies Problems Problem Type Condition Code Onset Dates Condition Status Problem Asthma J45.909 Active Problem Benign essential hypertension I10 Active Problem Type II diabetes mellitus E11.9 Active Problem Hyperlipemia E78.5 Active Problem Onychomycosis B35.1 Active Medications Medication Code System Code Instructions Start Date End Date Status Dosage Pravastatin Sodium [facility] [address]-81 20 MG Orally Once a day Jun 26, 2015 1 tablet Results No Known Results Summary Purpose eClinicalWorks Submission
--- OUTSIDE RECORDS SUMMARY | 2017-06-28 19:19 | XMS REPORT ---
Author Author JULIO MAHONEY [facility] Address [address] [place] [address] Care Team Providers Care Holter Scanning Technician Name Role Phone JULIO MAHONEY Unavailable PROBLEMS Type Condition ICD9-CM Code [id number] Code Onset Dates Condition Status SNOMED Code Problem Type II diabetes mellitus E11.9 Active 70231827 Problem Encounter for dental examination and cleaning without abnormal findings Z01.20 Active 767748635 Problem Asthma J45.909 Active 312397974 Problem Onychomycosis B35.1 Active 375918166 Problem Hyperlipemia E78.5 Active 02516311 Problem Benign essential hypertension I10 Active 0760405 Problem Chronic tension-type headache, not intractable G44.229 Active 003525061 Problem 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 749744020 Problem Depressed mood F32.9 Active 401696352 Problem Dysthymia F34.1 Active 27388089 Problem Nocturnal hypoxemia G47.34 Active 757373334 Problem COPD exacerbation J44.1 Active 829305023 ALLERGIES No Information SOCIAL HISTORY Never Assessed PLAN OF CARE VITAL SIGNS MEDICATIONS Medication Instructions Dosage Frequency Start Date End Date Duration Status ProAir HFA 90 mcg/actuation Inhalation every 4 hrs 2 puffs as needed 4h 06 Jul, 2014 Active Farxiga 10 mg Orally Once a day 1 tablet 24h Active Spiriva HandiHaler 18 MCG Inhalation Once a day 1 capsule 24h Active Advair Diskus 500-50 MCG/DOSE Inhalation 2 times a day 1 puff 12h 30 Jul, 2012 Active RESULTS No Results PROCEDURES No Known procedures IMMUNIZATIONS No Known Immunizations MEDICAL (GENERAL) HISTORY Type Description Date Medical History Asthma- PFT 2012- "mild restrictive defect" Medical History Type 2 diabetes mellitus Medical History Headache syndrome Medical History Eye exam 03/2015- Dry eye syndrome, Exophria, nuclear sclerotic cataract- [place] Medical History Left medial meniscus tear-seeing [facility] Surgical History hysterectomy, total with bilateral salpingo-oophorectomy (BSO )- had cysts on her ovaries- no hx of cancer Surgical History left arm fracture 2015 Surgical History left knee scope 10/2015 Surgical History left elbow 2016 Hospitalization History surgeries Hospitalization History Child
--- OUTSIDE RECORDS SUMMARY | 2017-06-28 19:19 | XMS REPORT ---
Author Author ROSEMARY PIERRE Organization eClinicalWorks Address Unknown Phone Unavailable Care Team Providers Care Apprentice Painter Brush Name Role Phone ROSEMARY PIERRE CP Unavailable Allergies No Known Allergies Problems Problem Type Condition Code Onset Dates Condition Status Problem Onychomycosis B35.1 Active Assessment Depressed mood F32.9 Active Problem Dysthymia F34.1 Active Problem Encounter for dental examination and cleaning without abnormal findings Z01.20 Active Problem Depressed mood F32.9 Active Problem Benign essential hypertension I10 Active Problem Hyperlipemia E78.5 Active Problem Type II diabetes mellitus E11.9 Active Problem Asthma J45.909 Active Medications No Known Medications Results No Known Results Summary Purpose eClinicalWorks Submission
--- OUTSIDE RECORDS SUMMARY | 2017-06-28 19:19 | XMS REPORT ---
Author JULIO Escobar [facility] eClinicalWorks Address Unknown Phone Unavailable Care Team Providers Care Stable Helper Name Role Phone JULIO MAHONEY CP Unavailable Allergies, Adverse Reactions, Alerts Substance Reaction Event Type Codeine nausea and vomiting Drug Allergy Problems Problem Type Condition Code Onset Dates Condition Status Assessment Hyperlipemia E78.5 Active Assessment Onychomycosis B35.1 Active Problem Asthma J45.909 Active Problem Benign essential hypertension I10 Active Problem Type II diabetes mellitus E11.9 Active Assessment Type II diabetes mellitus E11.9 Active Assessment Benign essential hypertension I10 Active Problem Hyperlipemia E78.5 Active Problem Onychomycosis B35.1 Active Medications Medication Code System Code Instructions Start Date End Date Status Dosage Cyclobenzaprine HCl [facility] [address]-84 5 MG Orally 2 times a day Jun 05, 2015 Jul 05, 2015 1 tablet Naproxen [facility] [address]-53 500 MG Orally every 12 hrs Jun 05, 2015 1 tablet as needed MetFORMIN HCl ER (MOD) [facility] [address]-26 1000 MG Orally 2 times a day ( follow up in AUGUST) 1 tablet with evening meal Singulair [facility] [address]-51 10 MG Orally Once a day 1 tablet Farxiga [facility] [address]-46 5 MG [facility] Jul [facility], 2014 take 1 tablet Spiriva HandiHaler [facility] [address]-21 18 MCG Inhalation Once a day 1 capsule Omeprazole [facility] [address]-30 20 MG Orally Once a day 1 capsule Lisinopril [facility] [address]-74 5 MG Orally Once a day 1 tablet by Oral route 1 time per day protect kidneys Albuterol Sulfate [facility] [address]-68 2.5 mg /3 mL (0.083 %) October 17, 2013 1 Each by Inhalation route every 4 hours for cough and wheeze PRN for wheezing or cough cetirizine [facility] [address]-07 10 mg October 17, 2013 1 tablet by Oral route 1 daily pravastatin [facility] 0 10 mg Jul 25, 2014 1 tablet by Oral route 1 time per day QHS. Avoid grapefruit juice and products with grapefruit. Advair Diskus [facility] [address]-53 500-50 mcg/dose August 25, 2012 inhale 1 puff by Inhalation route in the morning and evening 2 times per day approximately 12 hours apart rinse mouth and spit after use amitriptyline [facility] [address]-05 50 mg August 23, 2014 take 1 tablet (50 mg) by oral route once daily at bedtime Voltaren [facility] [address]-32 1 % Transdermal 3 times a day Jun 05, 2015 as directed ProAir HFA [facility] [address]-17 90 mcg/actuation Inhalation every 4 hrs August 01, 2014 2 puffs as needed Imitrex [facility] [address]-72 50 mg Dec 31, 2013 take 1 tablet (50 mg ) by oral route once with fluids as early as possible after the onset of a migraine attack;may repeat after 2 hours if headache returns, not to exceed 200mg in 24hrs Procedures Procedure Coding System Code Date COMPREHEN METABOLIC PANEL CPT-4 55765 Jun 22, 2015 LIPID PANEL CPT-4 99415 Jun 22, 2015 COMPLETE CBC W/AUTO DIFF WBC CPT-4 54742 Jun 22, 2015 VENIPUNCT, ROUTINE* CPT-4 42496 Jun 22, 2015 ASSAY THYROID STIM HORMONE CPT-4 79104 Jun 22, 2015 Office Visit, Est Pt., Level 4 CPT-4 53091 Jun 22, 2015 GLYCATED HEMOGLOBIN TEST CPT-4 96580 Jun 22, 2015 Vital Signs Date/Time: Jun 22, 2015 Temperature 97.6 F Weight 175.9 lbs Height 64 in BMI 30.19 Index Blood Pressure Diastolic 80 mmHg Blood Pressure Systolic 122 mmHg Cardiac Monitoring Heart Rate 70 bpm Results Name Result Date Reference Range Unit Abnormality Flag A1C (IN HOUSE) ----A1C IN HOUSE 6.7 [id number] 4.3 - 5.6 % ----Previous A1c 5.7 [id number] ----Lot [id number] ----Exp date [id number] ROUTINE VENIPUNCTURE Summary Purpose eClinicalWorks Submission
--- OUTSIDE RECORDS SUMMARY | 2017-06-28 19:19 | XMS REPORT ---
Author Author JULIO MAHONEY [facility] Address [address] [place] [address] Care Team Providers Care Industrial Safety And Health Manager Name Role Phone JULIO MAHONEY Unavailable PROBLEMS Type Condition ICD9-CM Code [id number] Code Onset Dates Condition Status SNOMED Code Problem Type II diabetes mellitus E11.9 Active 49477575 Problem Encounter for dental examination and cleaning without abnormal findings Z01.20 Active 307150609 Problem Asthma J45.909 Active 186229950 Problem Onychomycosis B35.1 Active 248460266 Problem Hyperlipemia E78.5 Active 25020039 Problem Benign essential hypertension I10 Active 8528015 Problem Chronic tension-type headache, not intractable G44.229 Active 400303829 Problem 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 248176831 Problem Depressed mood F32.9 Active 022226739 Problem Dysthymia F34.1 Active 49054730 Problem Nocturnal hypoxemia G47.34 Active 383324913 Problem COPD exacerbation J44.1 Active 893585894 ALLERGIES Substance Reaction Event Type Date Status Codeine nausea and vomiting Drug Allergy Jun, Active SOCIAL HISTORY Never Assessed PLAN OF CARE Activity Details Follow Up 3 Months Reason:DM visit VITAL SIGNS Height 64 in 2016-07-14 Weight 176.7 lbs 2016-07-14 Temperature 98.1 degrees Fahrenheit 2016-07-14 Heart Rate 81 bpm 2016-07-14 Respiratory Rate 16 2016-07-14 Oximetry 94 % 2016-07-14 BMI 30.33 kg/m2 2016-07-14 Blood pressure systolic 126 mmHg 2016-07-14 Blood pressure diastolic 84 mmHg 2016-07-14 MEDICATIONS Medication Instructions Dosage Frequency Start Date End Date Duration Status amitriptyline 50 mg take 1 tablet (50 mg) by oral route once daily at bedtime Jul, Active Pravastatin Sodium 20 MG 1 tablet Once a day Orally Active Farxiga 10 MG Orally Once a day (PALS) 1 tablet Active Spiriva HandiHaler 18 MCG Inhalation Once a day 1 capsule 24h Active MetFORMIN HCl ER (MOD) 1000 MG Orally 2 times a day (follow up in SEPTEMBER) 1 tablet with breakfast and evening meal Active Lisinopril 5 mg Orally Once a day 1 tablet 24h Active Zoloft 50 mg Orally Once a day 1 tablet 24h 31 Feb, 2016 Active ProAir HFA 90 mcg/actuation Inhalation every 4 hrs 2 puffs as needed 4h Jul, Active Advair Diskus 500-50 MCG/DOSE Inhalation 2 times a day (PALS) 1 puff Jul, Active Albuterol Sulfate 2.5 mg /3 mL (0.083 %) 1 Each by Inhalation route every 4 hours for cough and wheeze PRN for wheezing or cough September, Active Naproxen 500 MG Orally every 12 hrs 1 tablet as needed 12h May, Active Omeprazole 20 MG Orally Once a day 1 capsule 24h Active Imitrex 50 mg take 1 tablet (50 mg) by oral route once with fluids as early as possible after the onset of a migraine attack;may repeat after 2 hours if headache returns, not to exceed 200mg in 24hrs Dec, Active Amaryl 1 MG Orally once daily at breakfast. 1 tablet Jun, Active cetirizine 10 mg 1 tablet by Oral route 1 daily September, Active Singulair 10 MG Orally Once a day 1 tablet 24h Active RESULTS No Results PROCEDURES Procedure Date Ordered Result Body Site ROUTINE VENIPUNCTURE 2016-07-14 N/A OXIMETRY-OVERNIGHT 2016-07-14 N/A SOLUMEDROL (UP TO 125 MG) Jul 14, 2016 ASSAY THYROID STIM HORMONE Jul 14, 2016 THER/PROPH/DIAG INJ, SC/IM Jul 14, 2016 COMPLETE CBC W/AUTO DIFF WBC Jul 14, 2016 GLYCATED HEMOGLOBIN TEST Jul 14, 2016 LIPID PANEL Jul 14, 2016 COMPREHEN METABOLIC PANEL Jul 14, 2016 IMMUNIZATIONS Vaccine Route Administration Date Status SOLUMEDROL (UP TO 125 MG) IM Intramuscular Jul 14, 2016 Administered MEDICAL (GENERAL) HISTORY Type Description Date Medical History Asthma- PFT 2012- "mild restrictive defect" Medical History Type 2 diabetes mellitus Medical History Headache syndrome Medical History Eye exam 03/2015- Dry eye syndrome, Exophria, nuclear sclerotic cataract- [place] Medical History Left medial meniscus tear-seeing A.Henderson Surgical History hysterectomy, total with bilateral salpingo-oophorectomy (BSO )- had cysts on her ovaries- no hx of cancer Surgical History left arm fracture 2015 Surgical History left knee scope 10/2015 Surgical History left elbow 2016 Hospitalization History surgeries Hospitalization History Child
--- OUTSIDE RECORDS SUMMARY | 2017-06-28 19:20 | XMS REPORT | Continuity of Care Document ---
Author Author [facility] Address Unknown Phone Unavailable Allergies Active Description Code Type Severity Reaction Onset Reported/Identified Relationship to Patient Clinical Status Yes Codeine Drug Allergy 09/26/2011 Yes Codeine Drug Allergy N/A N/A 09/26/2011 Yes codeine [id number] Drug Allergy Mild N/A 03/23/2016 Medications There is no data. Problems Date Dx Coded Attending Type Code Diagnosis Diagnosed By 08/11/2011 WINIFRED LOPEZ MD 466.0 ACUTE BRONCHITIS 08/11/2011 WINIFRED LOPEZ MD 477.0 ALLERGIC RHINITIS - POLLEN 08/11/2011 WINIFRED LOPEZ MD 493.90 ASTHMA 08/11/2011 WINIFRED LOPEZ MD 466.0 ACUTE BRONCHITIS 08/11/2011 WINIFRED LOPEZ MD 477.0 ALLERGIC RHINITIS - POLLEN 08/11/2011 WINIFRED LOPEZ MD 493.90 ASTHMA 08/11/2011 WINIFRED LOPEZ MD 466.0 ACUTE BRONCHITIS 08/11/2011 WINIFRED LOPEZ MD 477.0 ALLERGIC RHINITIS - POLLEN 08/11/2011 WINIFRED LOPEZ MD 493.90 ASTHMA 08/11/2011 WINIFRED LOPEZ MD 466.0 ACUTE BRONCHITIS 08/11/2011 WINIFRED LOPEZ MD 477.0 ALLERGIC RHINITIS - POLLEN 08/11/2011 WINIFRED LOPEZ MD 493.90 ASTHMA 08/11/2011 466.0 ACUTE BRONCHITIS 08/11/2011 477.0 ALLERGIC RHINITIS - POLLEN 08/11/2011 493.90 ASTHMA 08/11/2011 466.0 ACUTE BRONCHITIS 08/11/2011 477.0 ALLERGIC RHINITIS - POLLEN 08/11/2011 493.90 ASTHMA 08/11/2011 466.0 ACUTE BRONCHITIS 08/11/2011 477.0 ALLERGIC RHINITIS - POLLEN 08/11/2011 493.90 ASTHMA 08/11/2011 466.0 ACUTE BRONCHITIS 08/11/2011 477.0 ALLERGIC RHINITIS - POLLEN 08/11/2011 493.90 ASTHMA 08/11/2011 WINIFRED LOPEZ MD 466.0 ACUTE BRONCHITIS 08/11/2011 WINIFRED LOPEZ MD 477.0 ALLERGIC RHINITIS - POLLEN 08/11/2011 JOHN SCHWARTZ, WINIFRED 493.90 ASTHMA 08/11/2011 WINIFRED LOPEZ MD 466.0 ACUTE BRONCHITIS 08/11/2011 JOHN SCHWARTZ, WINIFRED 477.0 ALLERGIC RHINITIS - POLLEN 08/11/2011 JOHN SCHWARTZ, WINIFRED 493.90 ASTHMA 08/11/2011 MCCARTNEY DO, ROSETTA K 466.0 ACUTE BRONCHITIS 08/11/2011 MCCARTNEY DO, ROSETTA K 477.0 ALLERGIC RHINITIS - POLLEN 08/11/2011 MCCARTNEY DO, ROSETTA K 493.90 ASTHMA 08/11/2011 MCCARTNEY DO, ROSETTA K 466.0 ACUTE BRONCHITIS 08/11/2011 MCCARTNEY DO, ROSETTA K 477.0 ALLERGIC RHINITIS - POLLEN 08/11/2011 MCCARTNEY DO, ROSETTA K 493.90 ASTHMA 08/11/2011 MCCARTNEY DO, ROSETTA K 466.0 ACUTE BRONCHITIS 08/11/2011 MCCARTNEY DO, ROSETTA K 477.0 ALLERGIC RHINITIS - POLLEN 08/11/2011 MCCARTNEY DO, ROSETTA K 493.90 ASTHMA 08/11/2011 MCCARTNEY DO, ROSETTA K 466.0 ACUTE BRONCHITIS 08/11/2011 MCCARTNEY DO, ROSETTA K 477.0 ALLERGIC RHINITIS - POLLEN 08/11/2011 MCCARTNEY DO, ROSETTA K 493.90 ASTHMA 08/11/2011 MAHONEYJULIO DUBOSE APRN 466.0 ACUTE BRONCHITIS 08/11/2011 MAHONEYJULIO DUBOSE APRN 477.0 ALLERGIC RHINITIS - POLLEN 08/11/2011 JULIO MAHONEY APRN 493.90 ASTHMA 08/11/2011 MAHONEYJULIO DUBOSE APRN 466.0 ACUTE BRONCHITIS 08/11/2011 MAHONEYJULIO DUBOSE APRN 477.0 ALLERGIC RHINITIS - POLLEN 08/11/2011 MAHONEY JULIO MARIA 493.90 ASTHMA 08/11/2011 MCCARTNEY DO, ROSETTA K 466.0 ACUTE BRONCHITIS 08/11/2011 MCCARTNEY DO, ROSETTA K 477.0 ALLERGIC RHINITIS - POLLEN 08/11/2011 MCCARTNEY DO, ROSETTA K 493.90 ASTHMA 08/11/2011 MAHONEYJULIO DUBOSE APRN 466.0 ACUTE BRONCHITIS 08/11/2011 MAHONEY JULIO MARIA 477.0 ALLERGIC RHINITIS - POLLEN 08/11/2011 MAHONEYJULIO DUBOSE APRN 493.90 ASTHMA 08/11/2011 JULIO MAHONEY APRN 466.0 ACUTE BRONCHITIS 08/11/2011 JULIO MAHONEY APRN 477.0 ALLERGIC RHINITIS - POLLEN 08/11/2011 JULIO MAHONEY APRN 493.90 ASTHMA 08/11/2011 MCCARTNEY DO, ROSETTA K 466.0 ACUTE BRONCHITIS 08/11/2011 MCCARTNEY DO, ROSETTA K 477.0 ALLERGIC RHINITIS - POLLEN 08/11/2011 MCCARTNEY DO, ROSETTA K 493.90 ASTHMA 08/11/2011 MCCARTNEY DO, ROSETTA K 466.0 ACUTE BRONCHITIS 08/11/2011 MCCARTNEY DO, ROSETTA K 477.0 ALLERGIC RHINITIS - POLLEN 08/11/2011 MCCARTNEY DO, ROSETTA K 493.90 ASTHMA 08/11/2011 DILIP DOMINIQUE APRN 466.0 ACUTE BRONCHITIS 08/11/2011 DILIP DOMINIQUE APRN 477.0 ALLERGIC RHINITIS - POLLEN 08/11/2011 DILIP DOMINIQUE APRN 493.90 ASTHMA 08/11/2011 EDUARDO DDS, CEZAR M 466.0 ACUTE BRONCHITIS 08/11/2011 EDUARDO DDS, CEZAR M 477.0 ALLERGIC RHINITIS - POLLEN 08/11/2011 EDUARDO DDS, CEZAR M 493.90 ASTHMA 08/11/2011 JULIO MAHONEY APRN 466.0 ACUTE BRONCHITIS 08/11/2011 JULIO MAHONEY APRN 477.0 ALLERGIC RHINITIS - POLLEN 08/11/2011 JULIO MAHONEY APRN 493.90 ASTHMA 09/16/2011 WINIFRED LOPEZ MD 493.92 ASTHMA WITH ACUTE EXACERBATION 09/16/2011 WINIFRED LOPEZ MD 493.92 ASTHMA WITH ACUTE EXACERBATION 09/16/2011 WINIFRED LOPEZ MD 493.92 ASTHMA WITH ACUTE EXACERBATION 09/16/2011 WINIFRED LOPEZ MD 493.92 ASTHMA WITH ACUTE EXACERBATION 09/16/2011 493.92 ASTHMA WITH ACUTE EXACERBATION 09/16/2011 493.92 ASTHMA WITH ACUTE EXACERBATION 09/16/2011 493.92 ASTHMA WITH ACUTE EXACERBATION 09/16/2011 493.92 ASTHMA WITH ACUTE EXACERBATION 09/16/2011 WINIFRED LOPEZ MD 493.92 ASTHMA WITH ACUTE EXACERBATION 09/16/2011 WINIFRED LOPEZ MD 493.92 ASTHMA WITH ACUTE EXACERBATION 09/16/2011 MCCARTNEY GETACHEW STEENA K 493.92 ASTHMA WITH ACUTE EXACERBATION 09/16/2011 MCCARTNEY DO ROSETTA K 493.92 ASTHMA WITH ACUTE EXACERBATION 09/16/2011 MCCARTNEY DO ROSETTA K 493.92 ASTHMA WITH ACUTE EXACERBATION 09/16/2011 MCCARTNEY DO ROSETTA K 493.92 ASTHMA WITH ACUTE EXACERBATION 09/16/2011 JULIO MAHONEY APRN 493.92 ASTHMA WITH ACUTE EXACERBATION 09/16/2011 JULIO MAHONEY APRN 493.92 ASTHMA WITH ACUTE EXACERBATION 09/16/2011 MCCARTNEY GETACHEW STEENA K 493.92 ASTHMA WITH ACUTE EXACERBATION 09/16/2011 JULIO MAHONEY APRN 493.92 ASTHMA WITH ACUTE EXACERBATION 09/16/2011 JULIO MAHONEY APRN 493.92 ASTHMA WITH ACUTE EXACERBATION 09/16/2011 MCCARTNEY GETACHEW STEENA K 493.92 ASTHMA WITH ACUTE EXACERBATION 09/16/2011 MCCARTNEY GETACHEW STEENA K 493.92 ASTHMA WITH ACUTE EXACERBATION 09/16/2011 DILIP DOMINIQUE APRN 493.92 ASTHMA WITH ACUTE EXACERBATION 09/16/2011 CEZAR CLARK DDS 493.92 ASTHMA WITH ACUTE EXACERBATION 09/16/2011 MAHONEYJULIO DUBOSE APRN 493.92 ASTHMA WITH ACUTE EXACERBATION 09/26/2011 JOHN SCHWARTZ, WINIFRED NODX NO DIAGNOSIS 09/26/2011 JOHN SCHWARZT, WINIFRED NODX NO DIAGNOSIS 09/26/2011 JOHN SCHWARTZ, WINIFRED NODX NO DIAGNOSIS 09/26/2011 WINIFRED LOPEZ MD NODX NO DIAGNOSIS 09/26/2011 NODX NO DIAGNOSIS 09/26/2011 NODX NO DIAGNOSIS 09/26/2011 NODX NO DIAGNOSIS 09/26/2011 NODX NO DIAGNOSIS 09/26/2011 JOHN SCHWARTZ, WINIFRED NODX NO DIAGNOSIS 09/26/2011 WINIFRED LOPEZ MD NODX NO DIAGNOSIS 09/26/2011 MCCARTNEY DO ROSETTA K NODX NO DIAGNOSIS 09/26/2011 MCCARTNEY DO ROSETTA K NODX NO DIAGNOSIS 09/26/2011 MCCARTNEY DO ROSETTA K NODX NO DIAGNOSIS 09/26/2011 MCCARTNEY DO ROSETTA K NODX NO DIAGNOSIS 09/26/2011 JULIO MAHONEY APRN NODX NO DIAGNOSIS 09/26/2011 JULIO MAHONEY APRN NODX NO DIAGNOSIS 09/26/2011 MCCARTNEY DO ROSETTA K NODX NO DIAGNOSIS 09/26/2011 JULIO MAHONEY APRN NODX NO DIAGNOSIS 09/26/2011 JULIO MAHONEY APRN NODX NO DIAGNOSIS 09/26/2011 ROSETTA MCCARTNEY DO NODX NO DIAGNOSIS 09/26/2011 ROSETTA MCCARTNEY DO NODX NO DIAGNOSIS 09/26/2011 CATINA MARIA DILIP John NODX NO DIAGNOSIS 09/26/2011 EDUARDO DDS, CEZAR M NODX NO DIAGNOSIS 09/26/2011 JULIO MAHONEY APRN NODX NO DIAGNOSIS 12/20/2011 WINIFRED LOPEZ MD 491.21 BRONCHITIS AECB 12/20/2011 WINIFRED LOPEZ MD 780.50 SLEEP DISTURBANCE, UNSPECIFIED 12/20/2011 WINIFRED LOPEZ MD 786.2 COUGH 12/20/2011 WINIFRED LOPEZ MD 491.21 BRONCHITIS AECB 12/20/2011 WINIFRED LOPEZ MD 780.50 SLEEP DISTURBANCE, UNSPECIFIED 12/20/2011 WINIFRED LOPEZ MD 786.2 COUGH 12/20/2011 WINIFRED LOPEZ MD 491.21 BRONCHITIS AECB 12/20/2011 WINIFRED LOPEZ MD 780.50 SLEEP DISTURBANCE, UNSPECIFIED 12/20/2011 WINIFRED LOPEZ MD 786.2 COUGH 12/20/2011 WINIFRED LOPEZ MD 491.21 BRONCHITIS AECB 12/20/2011 WINIFRED LOPEZ MD 780.50 SLEEP DISTURBANCE, UNSPECIFIED 12/20/2011 WINIFRED LOPEZ MD 786.2 COUGH 12/20/2011 491.21 BRONCHITIS AECB 12/20/2011 780.50 SLEEP DISTURBANCE, UNSPECIFIED 12/20/2011 786.2 COUGH 12/20/2011 491.21 BRONCHITIS AECB 12/20/2011 780.50 SLEEP DISTURBANCE, UNSPECIFIED 12/20/2011 786.2 COUGH 12/20/2011 491.21 BRONCHITIS AECB 12/20/2011 780.50 SLEEP DISTURBANCE, UNSPECIFIED 12/20/2011 786.2 COUGH 12/20/2011 491.21 BRONCHITIS AECB 12/20/2011 780.50 sleep disturbances 12/20/2011 786.2 COUGH 12/20/2011 WINIFRED LOPEZ MD 491.21 BRONCHITIS AECB 12/20/2011 WINIFRED LOPEZ MD 780.50 sleep disturbances 12/20/2011 WINIFRED LOPEZ MD 786.2 COUGH 12/20/2011 WINIFRED LOPEZ MD 491.21 BRONCHITIS AECB 12/20/2011 WINIFRED LOPEZ MD 780.50 sleep disturbances 12/20/2011 WINIFRED LOPEZ MD 786.2 COUGH 12/20/2011 MCCARTNEY DO, ROSETTA K 491.21 BRONCHITIS AECB 12/20/2011 MCCARTNEY DO, ROSETTA K 780.50 sleep disturbances 12/20/2011 MCCARTNEY DO, ROSETTA K 786.2 COUGH 12/20/2011 MCCARTNEY DO, ROSETTA K 491.21 BRONCHITIS AECB 12/20/2011 MCCARTNEY DO, ROSETTA K 780.50 sleep disturbances 12/20/2011 MCCARTNEY DO, ROSETTA K 786.2 COUGH 12/20/2011 MCCARTNEY DO, ROSETTA K 491.21 BRONCHITIS AECB 12/20/2011 MCCARTNEY DO, ROSETTA K 780.50 sleep disturbances 12/20/2011 MCCARTNEY DO, ROSETTA K 786.2 COUGH 12/20/2011 MCCARTNEY DO, ROSETTA K 491.21 BRONCHITIS AECB 12/20/2011 MCCARTNEY DO, ROSETTA K 780.50 sleep disturbances 12/20/2011 MCCARTNEY DO, ROSETTA K 786.2 COUGH 12/20/2011 JULIO MAHONEY APRN 491.21 BRONCHITIS AECB 12/20/2011 JULIO MAHONEY APRN 780.50 sleep disturbances 12/20/2011 JULIO MAHONEY APRN 786.2 COUGH 12/20/2011 JULIO MAHONEY APRN 491.21 BRONCHITIS AECB 12/20/2011 JULIO MAHONEY APRN 780.50 sleep disturbances 12/20/2011 JULIO MAHONEY APRN 786.2 COUGH 12/20/2011 MCCARTNEY DO, ROSETTA K 491.21 BRONCHITIS AECB 12/20/2011 MCCARTNEY DO, ROSETTA K 780.50 sleep disturbances 12/20/2011 MCCARTNEY DO, ROSETTA K 786.2 COUGH 12/20/2011 JULIO MAHONEY APRN 491.21 BRONCHITIS AECB 12/20/2011 JULIO MAHONEY APRN 780.50 sleep disturbances 12/20/2011 JULIO MAHONEY APRN 786.2 COUGH 12/20/2011 JULIO MAHONEY APRN 491.21 BRONCHITIS AECB 12/20/2011 MAHONEY JULIO MARIA 780.50 sleep disturbances 12/20/2011 JULIO MAHONEY APRN 786.2 COUGH 12/20/2011 MCCARTNEY DO, ROSETTA K 491.21 BRONCHITIS AECB 12/20/2011 MCCARTNEY DO, ROSETTA K 780.50 sleep disturbances 12/20/2011 MCCARTNEY DO, ROSETTA K 786.2 COUGH 12/20/2011 MCCARTNEY DO, ROSETTA K 491.21 BRONCHITIS AECB 12/20/2011 MCCARTNEY DO, ROSETTA K 780.50 sleep disturbances 12/20/2011 CMCARTNEY DO, ROSETTA K 786.2 COUGH 12/20/2011 DILIP DOMINIQUE APRN 491.21 BRONCHITIS AECB 12/20/2011 DILIP DOMINIQUE APRN 780.50 sleep disturbances 12/20/2011 DILIP DOMINIQUE APRN 786.2 COUGH 12/20/2011 EDUARDO DDSBENTLEYA M 491.21 BRONCHITIS AECB 12/20/2011 EDUARDO DDS CEZAR M 780.50 sleep disturbances 12/20/2011 EDUARDO DANE CEZAR M 786.2 COUGH 12/20/2011 JULIO MAHONEY APRN 491.21 BRONCHITIS AECB 12/20/2011 JULIO MAHONEY APRN 780.50 sleep disturbances 12/20/2011 JULIO MAHONEY APRN 786.2 COUGH 01/16/2012 WINIFRED LOPEZ MD V72.31 JEWELRY MOLD MAKER EXAM, ROUTINE 01/16/2012 WINIFRED LOPEZ MD V76.10 BREAST CANCER SCREENING 01/16/2012 WINIFRED LOPEZ MD V72.31 JEWELRY MOLD MAKER EXAM, ROUTINE 01/16/2012 WINIFRED LOPEZ MD V76.10 BREAST CANCER SCREENING 01/16/2012 WINIFRED LOPEZ MD V72.31 JEWELRY MOLD MAKER EXAM, ROUTINE 01/16/2012 WINIFRED LOPEZ MD V76.10 BREAST CANCER SCREENING 01/16/2012 WINIFRED LOPEZ MD V72.31 JEWELRY MOLD MAKER EXAM, ROUTINE 01/16/2012 WINIFRED LOPEZ MD V76.10 BREAST CANCER SCREENING 01/16/2012 V72.31 JEWELRY MOLD MAKER EXAM, ROUTINE 01/16/2012 V76.10 BREAST CANCER SCREENING 01/16/2012 V72.31 JEWELRY MOLD MAKER EXAM, ROUTINE 01/16/2012 V76.10 BREAST CANCER SCREENING 01/16/2012 V72.31 JEWELRY MOLD MAKER EXAM, ROUTINE 01/16/2012 V76.10 BREAST CANCER SCREENING 01/16/2012 V72.31 JEWELRY MOLD MAKER EXAM, ROUTINE 01/16/2012 V76.10 BREAST CANCER SCREENING 01/16/2012 WINIFRED LOPEZ MD V72.31 JEWELRY MOLD MAKER EXAM, ROUTINE 01/16/2012 WINIFRED LOPEZ MD V76.10 BREAST CANCER SCREENING 01/16/2012 WINIFRED LOPEZ MD V72.31 JEWELRY MOLD MAKER EXAM, ROUTINE 01/16/2012 WINIFRED LOPEZ MD V76.10 BREAST CANCER SCREENING 01/16/2012 ROSETTA MCCARTNEY DO V72.31 JEWELRY MOLD MAKER EXAM, ROUTINE 01/16/2012 ROSETTA MCCARTNEY DO V76.10 BREAST CANCER SCREENING 01/16/2012 GETACHEW MCCARTNEY DOA Suzi V72.31 JEWELRY MOLD MAKER EXAM, ROUTINE 01/16/2012 GETACHEW MCCARTNEY DOA Suzi V76.10 BREAST CANCER SCREENING 01/16/2012 ROSETTA MCCARTNEY DO V72.31 JEWELRY MOLD MAKER EXAM, ROUTINE 01/16/2012 ROSETTA MCACRTNEY DO V76.10 BREAST CANCER SCREENING 01/16/2012 GETACHEW MCCARTNEY DOA Suzi V72.31 JEWELRY MOLD MAKER EXAM, ROUTINE 01/16/2012 ROSETTA MCCARTNEY DO V76.10 BREAST CANCER SCREENING 01/16/2012 JULIO MAHONEY APRN V72.31 JEWELRY MOLD MAKER EXAM, ROUTINE 01/16/2012 JULIO MAHONEY APRN V76.10 BREAST CANCER SCREENING 01/16/2012 JULIO MAHONEY APRN V72.31 JEWELRY MOLD MAKER EXAM, ROUTINE 01/16/2012 JULIO MAHONEY APRN V76.10 BREAST CANCER SCREENING 01/16/2012 ROSETTA MCCARTNEY DO V72.31 JEWELRY MOLD MAKER EXAM, ROUTINE 01/16/2012 ROSETTA MCCARTNEY DO V76.10 BREAST CANCER SCREENING 01/16/2012 JULIO MAHONEY APRN V72.31 JEWELRY MOLD MAKER EXAM, ROUTINE 01/16/2012 JULIO MAHONEY APRN V76.10 visit for: screening exam malignant neoplasm breast 01/16/2012 JULIO MAHONEY APRN V72.31 JEWELRY MOLD MAKER EXAM, ROUTINE 01/16/2012 JULIO MAHONEY APRN V76.10 visit for: screening exam malignant neoplasm breast 01/16/2012 ROSETTA MCCARTNEY DO V72.31 JEWELRY MOLD MAKER EXAM, ROUTINE 01/16/2012 ROSETTA MCCARTNEY DO V76.10 visit for: screening exam malignant neoplasm breast 01/16/2012 ROSETTA MCCARTNEY DO V72.31 JEWELRY MOLD MAKER EXAM, ROUTINE 01/16/2012 ROSETTA MCCARTNEY DO V76.10 visit for: screening exam malignant neoplasm breast 01/16/2012 DILIP DOMINIQUE APRN V72.31 JEWELRY MOLD MAKER EXAM, ROUTINE 01/16/2012 DILIP DOMINIQUE APRN V76.10 visit for: screening exam malignant neoplasm breast 01/16/2012 EDUARDO DDS, CEZAR M V72.31 JEWELRY MOLD MAKER EXAM, ROUTINE 01/16/2012 CEZAR CLARK DDS V76.10 visit for: screening exam malignant neoplasm breast 01/16/2012 JULIO MAHONEY APRN V72.31 JEWELRY MOLD MAKER EXAM, ROUTINE 01/16/2012 JULIO MAHONEY APRN V76.10 visit for: screening exam malignant neoplasm breast 07/26/2012 WINIFRED LOPEZ MD 477.9 ALLERGIC RHINITIS 07/26/2012 WINIFRED LOPEZ MD V72.62 Blood Chemistry Screening Tests As Part Of General Physical Exam 07/26/2012 WINIFRED LOPEZ MD 477.9 ALLERGIC RHINITIS 07/26/2012 WINIFRED LOPEZ MD V72.62 Blood Chemistry Screening Tests As Part Of General Physical Exam 07/26/2012 477.9 ALLERGIC RHINITIS 07/26/2012 V72.62 Blood Chemistry Screening Tests As Part Of General Physical Exam 07/26/2012 477.9 ALLERGIC RHINITIS 07/26/2012 V72.62 Blood Chemistry Screening Tests As Part Of General Physical Exam 07/26/2012 477.9 ALLERGIC RHINITIS 07/26/2012 V72.62 Blood Chemistry Screening Tests As Part Of General Physical Exam 07/26/2012 477.9 ALLERGIC RHINITIS 07/26/2012 V72.62 Blood Chemistry Screening Tests As Part Of General Physical Exam 07/26/2012 WINIFRED LOPEZ MD 477.9 ALLERGIC RHINITIS 07/26/2012 WINIFRED LOPEZ MD V72.62 Blood Chemistry Screening Tests As Part Of General Physical Exam 07/26/2012 WINIFRED LOPEZ MD7.9 ALLERGIC RHINITIS 07/26/2012 WINIFRED LOPEZ MD V72.62 Blood Chemistry Screening Tests As Part Of General Physical Exam 07/26/2012 ROSETTA MCCARTNEY DO 477.9 ALLERGIC RHINITIS 07/26/2012 ROSETTA MCCARTNEY DO V72.62 Blood Chemistry Screening Tests As Part Of General Physical Exam 07/26/2012 MCCARTNEY DO, ROSETTA K 477.9 ALLERGIC RHINITIS 07/26/2012 MCCARTNEY DO, ROSETTA K V72.62 Blood Chemistry Screening Tests As Part Of General Physical Exam 07/26/2012 MCCARTNEY DO, ROSETTA K 477.9 ALLERGIC RHINITIS 07/26/2012 MCCARTNEY DO, ROSETTA K V72.62 Blood Chemistry Screening Tests As Part Of General Physical Exam 07/26/2012 MCCARTNEY DO, ROSETTA K 477.9 ALLERGIC RHINITIS 07/26/2012 MCCARTNEY DO, ROSETTA K V72.62 Blood Chemistry Screening Tests As Part Of General Physical Exam 07/26/2012 JULIO MAHONEY APRN 477.9 ALLERGIC RHINITIS 07/26/2012 JULIO MAHONEY APRN V72.62 Blood Chemistry Screening Tests As Part Of General Physical Exam 07/26/2012 JULIO MAHONEY APRN 477.9 ALLERGIC RHINITIS 07/26/2012 JULIO MAHONEY APRN V72.62 Blood Chemistry Screening Tests As Part Of General Physical Exam 07/26/2012 MCCARTNEY DO, ROSETTA K 477.9 ALLERGIC RHINITIS 07/26/2012 MCCARTNEY DO, ROSETTA K V72.62 Blood Chemistry Screening Tests As Part Of General Physical Exam 07/26/2012 JULIO MAHONEY APRN 477.9 ALLERGIC RHINITIS 07/26/2012 JULIO MAHONEY APRN V72.62 Blood Chemistry Screening Tests As Part Of General Physical Exam 07/26/2012 JULIO MAHONEY APRN 477.9 ALLERGIC RHINITIS 07/26/2012 JULIO MAHONEY APRN V72.62 Blood Chemistry Screening Tests As Part Of General Physical Exam 07/26/2012 MCCARTNEY DO, ROSETTA K 477.9 ALLERGIC RHINITIS 07/26/2012 MCCARTNEY DO, ROSETTA K V72.62 Blood Chemistry Screening Tests As Part Of General Physical Exam 07/26/2012 MCCARTNEY DO, ROSETTA K 477.9 ALLERGIC RHINITIS 07/26/2012 MCCARTNEY DO, ROSETTA K V72.62 Blood Chemistry Screening Tests As Part Of General Physical Exam 07/26/2012 DILIP DOMINIQUE APRN 477.9 ALLERGIC RHINITIS 07/26/2012 DILIP DOMINIQUE APRN V72.62 Blood Chemistry Screening Tests As Part Of General Physical Exam 07/26/2012 HUAN CLARK DDSASHA M 477.9 ALLERGIC RHINITIS 07/26/2012 EDUARDO BOYLES, CEZAR Herrera V72.62 Blood Chemistry Screening Tests As Part Of General Physical Exam 07/26/2012 JULIO MAHONEY APRN 477.9 ALLERGIC RHINITIS 07/26/2012 JULIO MAHONEY APRN V72.62 Blood Chemistry Screening Tests As Part Of General Physical Exam 09/10/2012 250.00 DIABETES MELLITUS TYPE 2 09/10/2012 278.00 OBESITY 09/10/2012 518.89 RESTRICTIVE LUNG DISEASE 09/10/2012 784.0 headache 09/10/2012 250.00 DIABETES MELLITUS TYPE 2 09/10/2012 278.00 OBESITY 09/10/2012 518.89 RESTRICTIVE LUNG DISEASE 09/10/2012 784.0 headache 09/10/2012 250.00 DIABETES MELLITUS TYPE 2 09/10/2012 278.00 OBESITY 09/10/2012 518.89 RESTRICTIVE LUNG DISEASE 09/10/2012 784.0 headache 09/10/2012 250.00 DIABETES MELLITUS TYPE 2 09/10/2012 278.00 OBESITY 09/10/2012 518.89 RESTRICTIVE LUNG DISEASE 09/10/2012 784.0 headache 09/10/2012 WINIFRED LOPEZ MD 250.00 DIABETES MELLITUS TYPE 2 09/10/2012 WINIFRED LOPZE MD 278.00 OBESITY 09/10/2012 WINIFRED LOPEZ MD 518.89 RESTRICTIVE LUNG DISEASE 09/10/2012 WINIFRED LOPEZ MD 784.0 headache 09/10/2012 WINIFRED LOPEZ MD 250.00 DIABETES MELLITUS TYPE 2 09/10/2012 WINIFRED LOPEZ MD 278.00 OBESITY 09/10/2012 WINIFRED LOPEZ MD 518.89 RESTRICTIVE LUNG DISEASE 09/10/2012 WINIFRED LOPEZ MD 784.0 headache 09/10/2012 MCCARTNEY DO ROSETTA K 250.00 DIABETES MELLITUS TYPE 2 09/10/2012 MCCARTNEY DO ROSETTA K 278.00 OBESITY 09/10/2012 MCCARTNEY DO ROSETTA K 518.89 RESTRICTIVE LUNG DISEASE 09/10/2012 MCCARTNEY DO ROSETTA K 784.0 headache 09/10/2012 MCCARTNEY DO ROSETTA K 250.00 DIABETES MELLITUS TYPE 2 09/10/2012 MCCARTNEY DO ROSETTA K 278.00 OBESITY 09/10/2012 MCCARTNEY DO, ROSETTA K 518.89 RESTRICTIVE LUNG DISEASE 09/10/2012 MCCARTNEY DO, ROSETTA K 784.0 headache 09/10/2012 MCCARTNEY DO, ROSETTA K 250.00 DIABETES MELLITUS TYPE 2 09/10/2012 MCCARTNEY DO, ROSETTA K 278.00 OBESITY 09/10/2012 MCCARTNEY DO, ROSETTA K 518.89 RESTRICTIVE LUNG DISEASE 09/10/2012 MCCARTNEY DO, ROSETTA K 784.0 headache 09/10/2012 MCCARTNEY DO, ROSETTA K 250.00 DIABETES MELLITUS TYPE 2 09/10/2012 MCCARTNEY DO, ROSETTA K 278.00 OBESITY 09/10/2012 MCCARTNEY DO, ROSETTA K 518.89 RESTRICTIVE LUNG DISEASE 09/10/2012 MCCARTNEY DO, ROSETTA K 784.0 headache 09/10/2012 JULIO MAHONEY APRN 250.00 DIABETES MELLITUS TYPE 2 09/10/2012 JULIO MAHONEY APRN 278.00 OBESITY 09/10/2012 JULIO MAHONEY APRN 518.89 RESTRICTIVE LUNG DISEASE 09/10/2012 JULIO MAHONEY APRN 784.0 headache 09/10/2012 JULIO MAHONEY APRN 250.00 DIABETES MELLITUS TYPE 2 09/10/2012 JULIO MAHONEY APRN 278.00 OBESITY 09/10/2012 JULIO MAHONEY APRN 518.89 RESTRICTIVE LUNG DISEASE 09/10/2012 JULIO MAHONEY APRN 784.0 headache 09/10/2012 MCCARTNEY DO, ROSETTA K 250.00 DIABETES MELLITUS TYPE 2 09/10/2012 MCCARTNEY DO, ROSETTA K 278.00 OBESITY 09/10/2012 MCCARTNEY DO, ROSETTA K 518.89 RESTRICTIVE LUNG DISEASE 09/10/2012 MCCARTNEY DO, ROSETTA K 784.0 headache 09/10/2012 JULIO MAHONEY APRN 250.00 DIABETES MELLITUS TYPE 2 09/10/2012 JULIO MAHONEY APRN 278.00 OBESITY 09/10/2012 JULIO MAHONEY APRN 518.89 RESTRICTIVE LUNG DISEASE 09/10/2012 JULIO MAHONEY APRN 784.0 headache 09/10/2012 JULIO MAHONEY APRN 250.00 DIABETES MELLITUS TYPE 2 09/10/2012 JULIO MAHONEY APRN 278.00 OBESITY 09/10/2012 JULIO MAHONEY APRN 518.89 RESTRICTIVE LUNG DISEASE 09/10/2012 JULIO MAHONEY APRN 784.0 headache 09/10/2012 MCCARTNEY DO, ROSETTA K 250.00 DIABETES MELLITUS TYPE 2 09/10/2012 MCCARTNEY DO, ROSETTA K 278.00 OBESITY 09/10/2012 MCCARTNEY DO, ROSETTA K 518.89 RESTRICTIVE LUNG DISEASE 09/10/2012 MCCARTNEY DO, ROSETTA K 784.0 headache 09/10/2012 MCCARTNEY DO, ROSETTA K 250.00 DIABETES MELLITUS TYPE 2 09/10/2012 MCCARTNEY DO, ROSETTA K 278.00 OBESITY 09/10/2012 MCCARTNEY DO, ROSETTA K 518.89 RESTRICTIVE LUNG DISEASE 09/10/2012 MCCARTNEY DO, ROSETTA K 784.0 headache 09/10/2012 DILIP DOMINIQUE APRN 250.00 DIABETES MELLITUS TYPE 2 09/10/2012 DILIP DOMINIQUE APRN 278.00 OBESITY 09/10/2012 DILIP DOMINIQUE APRN 518.89 RESTRICTIVE LUNG DISEASE 09/10/2012 DILIP DOMINIQUE APRN 784.0 headache 09/10/2012 EDUARDO DDS, CEZAR M 250.00 DIABETES MELLITUS TYPE 2 09/10/2012 EDUARDO MONTANAS, CEZAR M 278.00 OBESITY 09/10/2012 EDUARDO BENTLEY VELAA M 518.89 RESTRICTIVE LUNG DISEASE 09/10/2012 EDUARDO DANE CEZAR M 784.0 headache 09/10/2012 JULIO MAHONEY APRN 250.00 DIABETES MELLITUS TYPE 2 09/10/2012 JULIO MAHONEY APRN 278.00 OBESITY 09/10/2012 JULIO MAHONEY APRN 518.89 RESTRICTIVE LUNG DISEASE 09/10/2012 JULIO MAHONEY APRN 784.0 headache 12/03/2012 110.1 DERMATOPHYTOSIS NAILS ONYCHOMYCOSIS 12/03/2012 WINIFRED LOPEZ MD 110.1 DERMATOPHYTOSIS NAILS ONYCHOMYCOSIS 12/03/2012 WINIFRED LOPEZ MD 110.1 DERMATOPHYTOSIS NAILS ONYCHOMYCOSIS 12/03/2012 GETACHEW MCCARTNEY DOA K 110.1 DERMATOPHYTOSIS NAILS ONYCHOMYCOSIS 12/03/2012 MCCARTNEY DO, ROSETTA K 110.1 DERMATOPHYTOSIS NAILS ONYCHOMYCOSIS 12/03/2012 GETAHCEW MCCARTNEY DOA K 110.1 DERMATOPHYTOSIS NAILS ONYCHOMYCOSIS 12/03/2012 GETACHEW MCCARTNEY DOA K 110.1 DERMATOPHYTOSIS NAILS ONYCHOMYCOSIS 12/03/2012 JULIO MAHONEY APRN 110.1 DERMATOPHYTOSIS NAILS ONYCHOMYCOSIS 12/03/2012 JULIO MAHONEY APRN 110.1 DERMATOPHYTOSIS NAILS ONYCHOMYCOSIS 12/03/2012 ROSETTA MCCARTNEY DO K 110.1 DERMATOPHYTOSIS NAILS ONYCHOMYCOSIS 12/03/2012 JULIO MAHONEY APRN 110.1 DERMATOPHYTOSIS NAILS ONYCHOMYCOSIS 12/03/2012 JULIO MAHONEY APRN 110.1 DERMATOPHYTOSIS NAILS ONYCHOMYCOSIS 12/03/2012 ROSETTA MCCARTNEY DO K 110.1 DERMATOPHYTOSIS NAILS ONYCHOMYCOSIS 12/03/2012 ROSETTA MCCARTNEY DO K 110.1 DERMATOPHYTOSIS NAILS ONYCHOMYCOSIS 12/03/2012 DILIP DOMINIQUE APRN 110.1 DERMATOPHYTOSIS NAILS ONYCHOMYCOSIS 12/03/2012 CEZAR CLARK DDS 110.1 DERMATOPHYTOSIS NAILS ONYCHOMYCOSIS 12/03/2012 JULIO MAHONEY APRN 110.1 DERMATOPHYTOSIS NAILS ONYCHOMYCOSIS 12/18/2012 726.31 MEDIAL EPICONDYLITIS ELBOW REGION 12/18/2012 WINIFRED LOPEZ MD 726.31 MEDIAL EPICONDYLITIS 12/18/2012 WINIFRED LOPEZ MD 726.31 MEDIAL EPICONDYLITIS 12/18/2012 ROSETTA MCCARTNEY DO 726.31 MEDIAL EPICONDYLITIS 12/18/2012 ROSETTA MCCARTNEY DO K 726.31 MEDIAL EPICONDYLITIS 12/18/2012 ROSETTA MCCARTNEY DO K 726.31 MEDIAL EPICONDYLITIS 12/18/2012 ROSETTA MCCARTNEY DO K 726.31 MEDIAL EPICONDYLITIS 12/18/2012 JULIO MAHONEY APRN 726.31 MEDIAL EPICONDYLITIS 12/18/2012 JULIO MAHONEY APRN 726.31 MEDIAL EPICONDYLITIS 12/18/2012 ROSETTA MCCARTNEY DO 726.31 MEDIAL EPICONDYLITIS 12/18/2012 JULIO MAHONEY APRN 726.31 MEDIAL EPICONDYLITIS 12/18/2012 JULIO MAHONEY APRN 726.31 MEDIAL EPICONDYLITIS 12/18/2012 ROSETTA MCCARTNEY DO 726.31 MEDIAL EPICONDYLITIS 12/18/2012 ROSETTA MCCARTNEY DO 726.31 MEDIAL EPICONDYLITIS 12/18/2012 DILIP DOMINIQUE APRN 726.31 MEDIAL EPICONDYLITIS 12/18/2012 CEZAR CLARK DDS 726.31 MEDIAL EPICONDYLITIS 12/18/2012 JULIO MAHONEY APRN 726.31 MEDIAL EPICONDYLITIS 05/02/2013 ROSETTA MCCARTNEY DO 719.42 PAIN- ELBOW 05/02/2013 JULIO MAHONEY APRN 719.42 PAIN- ELBOW 05/02/2013 JULIO MAHONEY APRN 719.42 PAIN- ELBOW 05/02/2013 ROSETTA MCCARTNEY DO 719.42 PAIN- ELBOW 05/02/2013 JULIO MAHONEY APRN 719.42 PAIN- ELBOW 05/02/2013 JULIO MAHONEY APRN 719.42 PAIN- ELBOW 05/02/2013 ROSETTA MCCARTNEY DO 719.42 PAIN- ELBOW 05/02/2013 ROSETTA MCCARTNEY DO 719.42 PAIN- ELBOW 05/02/2013 DILIP DOMINIQUE APRN 719.42 PAIN- ELBOW 05/02/2013 CEZAR CLARK DDS 719.42 PAIN- ELBOW 05/02/2013 JULIO MAHONEY APRN 719.42 PAIN- ELBOW 07/05/2013 ROSETTA MCCARTNEY DO 461.9 SINUSITIS ACUTE 07/05/2013 JULIO MAHONEY APRN 461.9 SINUSITIS ACUTE 07/05/2013 JULIO MAHONEY APRN 461.9 SINUSITIS ACUTE 07/05/2013 ROSETTA MCCARTNEY DO 461.9 SINUSITIS ACUTE 07/05/2013 JULIO MAHONEY APRN 461.9 SINUSITIS ACUTE 07/05/2013 JULIO MAHONEY APRN 461.9 SINUSITIS ACUTE 07/05/2013 ROSETTA MCCARTNEY DO K 461.9 SINUSITIS ACUTE 07/05/2013 GETACHEW MCCARTNEY DOA K 461.9 SINUSITIS ACUTE 07/05/2013 DILIP DOMINIQUE APRN 461.9 SINUSITIS ACUTE 07/05/2013 CEZAR CLARK DDS 461.9 SINUSITIS ACUTE 07/05/2013 JULIO MAHONEY APRN 461.9 SINUSITIS ACUTE 03/06/2014 JULIO MAHONEY APRN 627.3 VAGINITIS POSTMENOPAUSAL ATROPHIC 03/06/2014 JULIO MAHONEY APRN 787.91 diarrhea 03/06/2014 JULIO MAHONEY APRN V72.3 Pelvic Exam (Internal) 03/06/2014 JULIO MAHONEY APRN 627.3 VAGINITIS POSTMENOPAUSAL ATROPHIC 03/06/2014 JULIO MAHONEY APRN 787.91 diarrhea 03/06/2014 JULIO MAHONEY APRN V72.3 Pelvic Exam (Internal) 03/06/2014 GETACHEW MCCARTNEY DOA K 627.3 VAGINITIS POSTMENOPAUSAL ATROPHIC 03/06/2014 MCCARTNEY DO ROSETTA K 787.91 diarrhea 03/06/2014 MCCARTNEY DO ROSETTA K V72.3 Pelvic Exam (Internal) 03/06/2014 MCCARTNEY GETACHEW STEENA K 627.3 VAGINITIS POSTMENOPAUSAL ATROPHIC 03/06/2014 MCCARTNEY DO ROSETTA K 787.91 diarrhea 03/06/2014 MCCARTNEY DO ROSETTA K V72.3 Pelvic Exam (Internal) 03/06/2014 DILIP DOMINIQUE APRN 627.3 VAGINITIS POSTMENOPAUSAL ATROPHIC 03/06/2014 DILIP DOMINIQUE APRN 787.91 diarrhea 03/06/2014 DILIP DOMINIQUE APRN V72.3 Pelvic Exam (Internal) 03/06/2014 CEZAR CLARK DDS 627.3 VAGINITIS POSTMENOPAUSAL ATROPHIC 03/06/2014 CEZAR CLARK DDS 787.91 diarrhea 03/06/2014 CEZAR CLARK DDS V72.3 Pelvic Exam (Internal) 03/06/2014 JULIO MAHONEY APRN 627.3 VAGINITIS POSTMENOPAUSAL ATROPHIC 03/06/2014 JULIO MAHONEY APRN 787.91 diarrhea 03/06/2014 JULIO MAHONEY APRN V72.3 Pelvic Exam (Internal) 05/26/2014 ROSETTA MCCARTNEY DO K 482.9 BACTERIAL PNEUMONIA UNSPECIFIED 05/26/2014 ROSETTA MCCARTNEY DO K 482.9 BACTERIAL PNEUMONIA UNSPECIFIED 05/26/2014 DILIP DOMINIQUE APRN 482.9 BACTERIAL PNEUMONIA UNSPECIFIED 05/26/2014 CEZAR CLARK DDS 482.9 BACTERIAL PNEUMONIA UNSPECIFIED 05/26/2014 JULIO MAHONEY APRN 482.9 BACTERIAL PNEUMONIA UNSPECIFIED 05/28/2014 ROSETTA MCCARTNEY DO K V67.9 UNSPECIFIED FOLLOW-UP EXAMINATION 05/28/2014 DILIP DOMINIQUE APRN V67.9 UNSPECIFIED FOLLOW-UP EXAMINATION 05/28/2014 CEZAR CLARK DDS V67.9 UNSPECIFIED FOLLOW-UP EXAMINATION 05/28/2014 JULIO MAHONEY APRN V67.9 UNSPECIFIED FOLLOW-UP EXAMINATION 07/15/2014 JULIO MAHONEY APRN 041.81 OTHER SPECIFIED BACTERIAL INFECTIONS IN CONDITIONS CLASSIFIED ELSEWHERE AND OF UNSPECIFIED SITE MYCOPLASMA 07/15/2014 JULIO MAHONEY APRN 491.9 UNSPECIFIED CHRONIC BRONCHITIS 07/21/2014 JULIO MAHONEY APRN 786.59 OTHER CHEST PAIN 11/24/2014 JULIO MAHONEY APRN Ot V76.12 11/24/2014 JULIO MAHONEY APRN Ot V76.12 12/01/2014 AUGUSTO ELENA DO Ot 786.09 RESPIRATORY ABNORM NEC 12/02/2014 JULIO MAHONEY APRN Ot V76.12 12/02/2014 JULIO MAHONEY APRN Ot V76.12 01/15/2015 JULIO MAHONEY APRN Ot V76.12 01/15/2015 AUGUSTO ELENA DO Ot 278.00 01/15/2015 AUGUSTO ELENA DO Ot 493.90 01/15/2015 AUGUSTO ELENA DO Ot 780.54 01/15/2015 AUGUSTO ELENA DO, Ot 786.09 01/26/2015 AUGUSTO ELENA DO Ot 278.00 01/26/2015 AUGUSTO ELENA DO Ot 493.90 01/26/2015 AUGUSTO ELENA DO Ot 780.54 01/26/2015 AUGUSTO ELENA DO Ot 786.09 05/27/2015 DAVE JAIMES DISPOSAL WORKER Ot M23.92 UNSPECIFIED INTERNAL DERANGEMENT OF LEFT 09/15/2015 YOLIEAIXA CAMARGO PROJECT HIRE Ot M25.562 PAIN IN LEFT KNEE 09/20/2015 DEMETRIAAIXA CARTER N PROJECT HIRE Ot M25.562 PAIN IN LEFT KNEE 09/23/2015 YOLIEAIXA CAMARGO PROJECT HIRE Ot M25.562 PAIN IN LEFT KNEE 09/24/2015 DAVE JAIMES APRN Ot M23.92 UNSPECIFIED INTERNAL DERANGEMENT OF LEFT 09/25/2015 YOLIEAIXA CAMARGO PROJECT HIRE Ot M25.562 PAIN IN LEFT KNEE 11/03/2015 HINA FISH MD Ot M22.42 CHONDROMALACIA PATELLAE, LEFT KNEE 11/03/2015 HINA FISH MD Ot M23.201 DERANGEMENT OF UNSP LAT MENSC DUE TO OLD 11/03/2015 HINA FISH MD Ot Z01.818 ENCOUNTER FOR OTHER PREPROCEDURAL EXAMIN 11/05/2015 HINA FISH MD Ot M22.42 CHONDROMALACIA PATELLAE, LEFT KNEE 11/05/2015 HINA FISH MD Ot M23.201 DERANGEMENT OF UNSP LAT MENSC DUE TO OLD 11/05/2015 HINA FISH MD Ot Z01.818 ENCOUNTER FOR OTHER PREPROCEDURAL EXAMIN 11/11/2015 HINA FISH MD Ot E11.9 TYPE 2 DIABETES MELLITUS WITHOUT COMPLIC 11/11/2015 HINA FISH MD Ot M23.201 DERANGEMENT OF UNSP LAT MENSC DUE TO OLD 11/11/2015 HINA FISH MD Ot M94.262 CHONDROMALACIA, LEFT KNEE 12/25/2015 JULIO MAHONEY DISPOSAL WORKER Ot V76.12 OTH SCREEN MAMMO-MALIGN NEOPLASM OF RAVEN 12/25/2015 AUGUSTO ELENA DO Ot 278.00 OBESITY, NOS 12/25/2015 AUGUSTO ELENA DO Ot 493.90 ASTHMA, UNSPECIFIED 12/25/2015 AUGUSTO ELENA DO Ot 780.54 HYPERSOMNIA, UNSPECIFIED 12/25/2015 AUGUSTO ELENA DO Ot 786.09 RESPIRATORY ABNORM NEC 12/25/2015 AIXA WANG Ot M25.562 PAIN IN LEFT KNEE 03/17/2016 JULIO MAHONEY CROW Ot V76.12 OTH SCREEN MAMMO-MALIGN NEOPLASM OF RAVEN 03/17/2016 AUGUSTO ELENA DO Ot 278.00 OBESITY, NOS 03/17/2016 AUGUSTO ELENA DO Ot 493.90 ASTHMA, UNSPECIFIED 03/17/2016 AUGUSTO ELENA DO Ot 780.54 HYPERSOMNIA, UNSPECIFIED 03/17/2016 AUGUSTO ELENA DO Ot 786.09 RESPIRATORY ABNORM NEC 03/17/2016 AIXA WANG Ot M25.562 PAIN IN LEFT KNEE 03/23/2016 HINA FISH MD Ot G56.22 LESION OF ULNAR NERVE, LEFT UPPER LIMB 03/23/2016 HINA FISH MD Ot Z01.818 ENCOUNTER FOR OTHER PREPROCEDURAL EXAMIN 03/23/2016 HINA FISH MD Ot Z11.2 ENCOUNTER FOR SCREENING FOR OTHER BACTER 03/24/2016 HINA FISH MD Ot G56.22 LESION OF ULNAR NERVE, LEFT UPPER LIMB 03/24/2016 HINA FISH MD Ot Z01.818 ENCOUNTER FOR OTHER PREPROCEDURAL EXAMIN 03/24/2016 HINA FISH MD Ot Z11.2 ENCOUNTER FOR SCREENING FOR OTHER BACTER 03/30/2016 HINA FISH MD Ot E11.9 TYPE 2 DIABETES MELLITUS WITHOUT COMPLIC 03/30/2016 HINA FISH MD Ot G56.22 LESION OF ULNAR NERVE, LEFT UPPER LIMB 03/30/2016 HINA FISH MD Ot J45.909 UNSPECIFIED ASTHMA, UNCOMPLICATED 03/30/2016 HINA FISH MD Ot Z79.899 OTHER [facility] (CURRENT) DRUG THERAPY 04/05/2016 HINA FISH MD Ot E11.9 TYPE 2 DIABETES MELLITUS WITHOUT COMPLIC 04/05/2016 HINA FISH MD Ot G56.22 LESION OF ULNAR NERVE, LEFT UPPER LIMB 04/05/2016 HINA FISH MD, Ot J45.909 UNSPECIFIED ASTHMA, UNCOMPLICATED 04/05/2016 HINA FISH MD, Ot Z79.899 OTHER SHAKE MAKER (CURRENT) DRUG THERAPY 04/27/2016 HINA FISH MD, Ot E11.9 TYPE 2 DIABETES MELLITUS WITHOUT COMPLIC 04/27/2016 HINA FISH MD, Ot G56.22 LESION OF ULNAR NERVE, LEFT UPPER LIMB 04/27/2016 HINA FISH MD, Ot J45.909 UNSPECIFIED ASTHMA, UNCOMPLICATED 04/27/2016 HINA FISH MD, Ot Z79.899 OTHER SHAKE MAKER (CURRENT) DRUG THERAPY Procedures Code Description [place] [address] XRAY CHEST 3 VIEW 05/16/2012 40541 INFLUENZA A & B (IN-HOUSE) 07/26/2012 82100 PULMONARY FUNCTION TEST (IN- HOUSE) 07/27/2012 42041 ROUTINE VENIPUNCTURE 08/27/2012 85921 CMP 08/27/2012 20540 LIPID PANEL 08/27/2012 10187 CBC 08/27/2012 THYANA THYROID ANALYZER 08/27/2012 55670 SPIROMETRY 08/27/2012 37855 BRONCHODILATION PRE/POST 08/27/2012 40390 RESPIRATORY FLOW VOLUME LOOP 08/27/2012 71594 SPIROMETRY 10/29/2012 34529 THERAPUTIC INJ SQ/IM 10/29/2012 J2930 SOLUMEDROL INJ 10/29/2012 10896 ROUTINE VENIPUNCTURE 03/05/2013 16571 A1C (IN-HOUSE) 03/05/2013 75819 MICRO ALBUMIN-IN HOUSE 03/05/2013 99919 CMP 03/05/2013 OrthopedDilip Elizondo 03/05/2013 64454 XRAY ELBOW L COMP MIN 3 VIEWS 03/14/2013 87703 INJ TENDON SHEATH/LIGAMENT 06/13/2013 12218 OXIMETRY 07/05/2013 68289 A1C (IN-HOUSE) 07/05/2013 37779 INFLUENZA A & B (IN-HOUSE) 07/05/2013 24106 THERAPUTIC INJ SQ/IM 07/05/2013 J2930 SOLUMEDROL INJ 07/05/2013 55782 A1C (IN-HOUSE) 10/17/2013 67923 ROUTINE VENIPUNCTURE 10/17/2013 26301 THERAPUTIC INJ SQ/IM 10/17/2013 J1030 DEPO MEDROL 40 MG INJ 10/17/2013 36932 CMP 10/17/2013 08081 LIPID PANEL 10/17/2013 THYANA THYROID ANALYZER 10/17/2013 78517 A1C (IN-HOUSE) 01/23/2014 87581 MAMMOGRAM, SCREENING 03/06/2014 52204 PAP SMEAR 03/06/2014 Q0091 PAP SMEAR OBTAIN SMEAR 03/06/2014 07806 HEMOCCULT 03/06/2014 47850 INFLUENZA A & B (IN-HOUSE) 05/26/2014 41429 NEBULIZER TREATMENT 05/26/2014 J7613 ALBUTEROL UNIT DOSE FORM INHALED 05/26/2014 00134 THERAPUTIC INJ SQ/IM 05/26/2014 J0696 ROCEPHIN INJ 1 g 05/26/2014 97621 OXIMETRY 05/26/2014 61184 OXIMETRY 05/29/2014 85351 INJ TENDON SHEATH/LIGAMENT 06/12/2014 Results Test Result Range Methicillin resistant Staphylococcus aureus (MRSA) screening culture - 13:45 Methicillin resistant Staphylococcus aureus (MRSA) screening culture NEG NRG Encounters ACCT No. Visit Date/Time Discharge Status Pt. Type Provider Facility Loc./Unit Complaint [id number] 07/21/2014 11:07:00 07/21/2014 23:59:59 CLS Outpatient JULIO MAHONEY APRN [id number] 06/26/2014 10:56:00 06/26/2014 23:59:59 CLS Outpatient EDUARDO CEZAR VELA Sharon [id number] 06/12/2014 11:17:00 06/12/2014 23:59:59 CLS Outpatient DILIP DOMINIQUE APRN [id number] 05/28/2014 13:39:00 05/28/2014 23:59:59 CLS Outpatient ROSETTA MCCARTNEY DO [id number] 05/26/2014 14:28:00 05/26/2014 23:59:59 CLS Outpatient ROSETTA MCCARTNEY DO [id number] 03/06/2014 09:42:00 03/06/2014 23:59:59 CLS Outpatient JULIO MAHONEY APRN [id number] 03/06/2014 00:00:00 03/06/2014 23:59:59 CLS Outpatient JULIO MAHONEY APRN [id number] 02/13/2014 08:52:00 02/13/2014 23:59:59 CLS Outpatient ROSETTA MCCARTNEY DO [id number] 01/23/2014 09:32:00 01/23/2014 23:59:59 CLS Outpatient DENZEL MARIA JULIO Shantel [id number] 10/17/2013 11:35:00 10/17/2013 23:59:59 CLS Outpatient JULIO MAHONEY APRN Shantel [id number] 07/05/2013 09:19:00 07/05/2013 23:59:59 CLS Outpatient ROSETTA MCCARTNEY DO [id number] 06/13/2013 15:48:00 06/13/2013 23:59:59 CLS Outpatient ROSETTA MCCARTNEY DO [id number] 05/02/2013 15:09:00 05/02/2013 23:59:59 CLS Outpatient ROSETTA CMCARTNEY DO Suzi [id number] 03/14/2013 12:23:00 03/14/2013 23:59:59 CLS Outpatient ROSETTA MCCARTNEY DO Suzi [id number] 03/11/2013 09:29:00 03/11/2013 23:59:59 CLS Outpatient WINIFRED LOPEZ MD [id number] 03/05/2013 10:57:00 03/05/2013 23:59:59 CLS Outpatient WINIFRED LOPEZ MD [id number] 08/27/2012 10:39:00 08/27/2012 23:59:59 CLS Outpatient WINIFRED LOPEZ MD [id number] 07/26/2012 09:54:00 07/26/2012 23:59:59 CLS Outpatient WINIFRED LOPEZ MD [id number] 05/30/2012 10:56:00 05/30/2012 23:59:59 CLS Outpatient WINIFRED LOPEZ MD [id number] 05/12/2012 10:51:00 05/12/2012 23:59:59 CLS Outpatient WINIFRED LOPEZ MD [id number] 12/18/2012 12:11:00 Document Registration [id number] 10/29/2012 13:29:00 Document Registration [id number] 09/24/2012 09:00:00 Document Registration [id number] 09/10/2012 10:58:26 Document Registration [id number] 09/10/2012 08:49:00 Document Registration [id number] 03/30/2016 11:15:00 03/30/2016 23:59:59 CLS Outpatient ZAHINA VEGA MD [facility] LEFT CUBITAL TUNNEL SYNDROME [id number] 03/23/2016 13:24:00 03/23/2016 14:13:00 DIS Outpatient HINA FISH MD [facility] PREOP LEFT CUBITAL TUNNEL SYNDROME [id number] 11/11/2015 08:34:00 11/11/2015 18:05:00 DIS Outpatient HINA FISH MD [facility] LT.KNEE TORN MENISCUS [id number] 11/03/2015 10:24:00 11/03/2015 11:27:00 DIS Outpatient HINA FISH MD [facility] PREOP LT TORN MENISCUS [id number] 09/14/2015 11:30:00 09/14/2015 23:59:59 CLS Outpatient AIXA WANG [facility] RAD LT KNEE PAIN [id number] 05/27/2015 16:05:00 05/27/2015 18:16:00 DIS Emergency DAVE JAIMES DISPOSAL WORKER [facility] ER L KNEE/LEG/HAND PAIN/INJ [id number] 12/01/2014 15:06:00 12/01/2014 23:59:59 CLS Outpatient AUGUSTO ELENA DO [facility] LAB IGE,RAST [id number] 12/01/2014 14:47:00 12/01/2014 15:17:00 DIS Outpatient AUGUSTO ELENA DO [facility] SLEEP SNORING, CHOKING/ GASPING DURING SLEEP, EDS, SOB [id number] 03/17/2014 10:21:00 03/17/2014 23:59:59 CLS Outpatient JULIO MAHONEY DISPOSAL WORKER [facility] RAD SCREENING [id number] 12/25/2015 11:32:00 Document Registration
--- NOTE | 2017-06-28 22:22 | ED Lower Extremity ---
General Chief Complaint: Lower Extremity Stated Complaint: RT FOOT PAIN FROM FALL Nursing Triage Note: PT HERE WITH C/O R FOOT PAIN AFTER DROPPING BOARDS ON HER FOOT. Nursing Sepsis Screen: No Definite Risk Source: patient Exam Limitations: no limitations History of Present Illness Date Seen by Provider: Jun 28, 2017 Time Seen by Provider: 22:21 Initial Comments Drop for boards on the dorsal aspect right foot a few hours ago. She was initially old bear weight but she is now got a swollen dorsal right foot. Onset: just prior to arrival Severity: moderate Pain/Injury Location: right foot Modifying Factors: Worse With Movement Allergies and Home Medications Allergies Coded Allergies: codeine (Verified Allergy, Mild, 03/23/16) Home Medications Albuterol Sulfate 8.5 Gm Hfa.aer.ad, 1-2 PUFF IH Q4H PRN for SHORTNESS OF BREATH , (Reported) Albuterol Sulfate 2.5 Mg/3 Ml Vial.neb, 2.5 MG IH Q4H PRN for SHORTNESS OF BREATH, (Reported) Amitriptyline HCl 50 Mg Tablet, 50 MG PO HS, (Reported) Cetirizine HCl 10 Mg Tablet, 10 MG PO DAILY, (Reported) Dapagliflozin Propanediol 5 Mg Tablet, 5 MG PO DAILY, (Reported) Diclofenac Sodium 100 Gm Gel..gram., 2 GM TP TID, (Reported) Fluticasone/Salmeterol 1 Each Blst.w.dev, 1 EACH IH BID, (Reported) Lisinopril 5 Mg Tablet, 5 MG PO DAILY, (Reported) Metformin HCl 1,000 Mg Tablet, 1,000 MG PO BID WITH MEALS, (Reported) Montelukast Sodium 10 Mg Tablet, 10 MG PO DAILY, (Reported) Naproxen 500 Mg Tablet.dr, 500 MG PO Q12H PRN for PAIN, (Reported) Omeprazole 20 Mg Capsule.dr, 20 MG PO DAILY, (Reported) Pravastatin Sodium 20 Mg Tablet, 20 MG PO HS, (Reported) Promethazine HCl 25 Mg Tablet, 25 MG PO Q4H PRN for NAUSEA/VOMITING, (Reported) Promethazine HCl 25 Mg Tablet, 25 MG PO Q4H PRN for NAUSEA/VOMITING, #40 Prescribed by: SHELTON NAIK on 03/30/16 1100 Sodium Chloride 30 Ml [place], 2 SPRAYS NS PRN, (Reported) Sumatriptan Succinate 50 Mg Tab, 50 MG PO onset of migraine, PRN for MIGRAINE, ( Reported) Tiotropium [place] 1 Inh Aerp, 1 INH IH DAILY, (Reported) Tramadol HCl 50 Mg Tablet, 50 MG PO PRN, #40 Prescribed by: SHELTON NAIK on 03/30/16 1100 Constitutional: see HPI EENTM: see HPI Respiratory: no symptoms reported Cardiovascular: no symptoms reported Genitourinary: no symptoms reported Musculoskeletal: see HPI Skin: no symptoms reported Past Gyyelyu-Ftuidp-Fgivvb Hx Patient Social History Alcohol Use: Denies Use Recreational Drug Use: No Smoking Status: Never a Smoker Recent Foreign Travel: No Contact w/Someone Who Travel: No Recent Infectious Disease Expo: No Recent Hopitalizations: No Immunizations Up To Date Tetanus Booster (TDap): Unknown Seasonal Allergies Seasonal Allergies: Yes Surgeries History of Surgeries: Yes (left arm fx, left shoulder scope, right knee scope) Surgeries: Appendectomy, Hysterectomy, Orthopedic Respiratory History of Respiratory Disorde: Yes (WEARS O2 2L NOC) Respiratory Disorders: Asthma Cardiovascular History of Cardiac Disorders: Yes Cardiac Disorders: High Cholesterol, Hypertension Neurological History of Neurological Disord: Yes Neurological Disorders: Headaches /Migraines Reproductive System Hx Reproductive Disorders: No Sexually Transmitted Disease: No HIV/AIDS: 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 Genitourinary Genitourinary Disorders: UTI-Chronic Gastrointestinal History of Gastrointestinal Di: Yes Gastrointestinal Disorders: Gastroesophageal Reflux Musculoskeletal History of Musculoskeletal Dis: No Endocrine History of Endocrine Disorders: Yes Endocrine Disorders: Diabetes, Non-Insulin dep HEENT Loss of Vision: Bilateral Hearing Impairment: Denies Cancer History of Cancer: No Psychosocial History of Psychiatric Problem: No Integumentary History of Skin or Integumenta: No Blood Transfusions History of Blood Disorders: No Adverse Reaction to a Blood Tr: No (N/A) Physical Exam Vital Signs Vital Sign - Last 12Hours 06/28/17 20:00 Temp 98.8 Pulse 79 Resp 18 B/P (MAP) 151/89 (109) Pulse Ox 99 O2 Delivery Room Air Capillary Refill : Less Than 3 Seconds General Appearance: WD/WN, no apparent distress HEENT: PERRL/EOMI, normal ENT inspection Neck: non-tender, full range of motion Cardiovascular: regular rate, rhythm, no murmur Respiratory: normal breath sounds, no respiratory distress, no accessory muscle use Gastrointestinal: normal bowel sounds, non tender Hips: bilateral hip non-tender, bilateral hip normal inspection, bilateral hip normal range of motion Legs: bilateral leg non-tender, bilateral leg normal inspection, bilateral leg normal range of motion Knees: bilateral knee non-tender, bilateral knee normal inspection, bilateral knee normal range of motion Ankles: bilateral ankle non-tender, bilateral ankle normal inspection, bilateral ankle normal range of motion Feet: right foot ecchymosis, right foot swelling, right foot other (dorsal aspect right foot. Able to wiggle her toes. No increased pain in the foot with passive flexion or extension of the toes to suggest compartment syndrome. Capillary refills brisk.) Neurologic/Psychiatric: alert, normal mood/affect, oriented x 3 Skin: normal color, warm/dry Progress/Results/Core Measures Results/Orders My Orders Orders - DAVE JAIMES APRN Foot, Right, 3 View (06/28/17 22:11) Rx-Hydrocodone/Apap 5-325 Mg (Rx-Vicodin (06/28/17 22:30) Vital Signs/I&O Vital Sign - Last 12Hours 06/28/17 20:00 Temp 98.8 Pulse 79 Resp 18 B/P (MAP) 151/89 (109) Pulse Ox 99 O2 Delivery Room Air Blood Pressure Mean: 109 Departure Impression Impression: Primary Impression: Contusion of foot Disposition: 01 HOME, SELF-CARE Condition: Stable Departure-Patient Inst. Decision time for Depature: 22:22 Referrals: NO,LOCAL PHYSICIAN (PCP/Family) Primary Care Physician Patient Instructions: Contusion (DC) Add. Discharge Instructions: 1. Elevate foot as much as possible 2. Ice pack as much as possible 3. Pain medication as needed DAVE JAIMES APRN Jun 28, 2017 22:22
[2017-06-28] MEDS ORDERED: RX-HYDROCODONE/APAP 5/325 MG #4 TAB PK PO PRN (22:30)
[2017-06-28 22:50] VITALS: BP 151/89
--- NOTE | 2017-06-29 05:38 | Diagnostic Imaging Report ---
INDICATION: Pain and swelling status post injury. COMPARISON: None. FINDINGS: Three views of the right foot demonstrate no acute fracture or dislocation. There are no focal osseous lesions. There is mild soft tissue swelling. Joint spaces are well maintained. No radiopaque foreign bodies are seen. IMPRESSION: Mild soft tissue swelling, but no radiographic evidence of acute fracture or dislocation of the right foot. Dictated by: Dictated on workstation # [id number]
== END 2017-06-28 22:50 | disposition home or self-care (01) ==
LOC: EDUNIT# 19:10 → ER 19:12
DX: S90.31XA Contusion of right foot, initial encounter (principal); J45.909 Unspecified asthma, uncomplicated; E78.00 Pure hypercholesterolemia, unspecified; K21.9 Gastro-esophageal reflux disease without esophagitis; E11.9 Type 2 diabetes mellitus without complications; I10 Essential (primary) hypertension; Z87.440 Personal history of urinary (tract) infections; Z88.5 Allergy status to narcotic agent; Z79.84 Long term (current) use of oral hypoglycemic drugs; Z90.49 Acquired absence of other specified parts of digestive tract; Z90.710 Acquired absence of both cervix and uterus; W20.8XXA Other cause of strike by thrown, projected or falling object, initial encounter
CPT/HCPCS: 73630; 99283